=== PATIENT | female | born 1990 | race Caucasian/White ===

== ENCOUNTER 2016-03-05 16:22 | Emergency (ER) | payer BC ==
[2016-03-05 16:51] VITALS: BP 126/71
--- NOTE | 2016-03-05 17:09 | UC ---
Respiratory Complaint HPI - History of Current Complaint Chief Complaint: UCRespiratory Stated Complaint: CHEST CONGESTION Time Seen by Provider: 03/05/16 17:02 Hx Obtained From: Patient Hx Last Menstrual Period: mirena ?: No Onset/Duration: Sudden Onset, Lasting Days - 3, Worse Since - today Timing: Constant Character: Cough: Nonproductive Associated Signs And Symptoms: Positive: Wheezing, URI, Nasal Congestion, Hoarseness, Sinus Discomfort - bilateral maxillary - Risk Factors Pulmonary Embolism Risk Factors: Negative Cardiac Risk Factors: Negative Pseudomonas Risk Factors: Negative Tuberculosis Risk Factors: Negative - Allergies/Home Medications Allergies/Adverse Reactions: Allergies Allergy/AdvReac Type Severity Reaction Status Date / Time Hydrocodone [From Vicodin] Allergy Severe Swelling Verified 03/05/16 16:51 Of Face,Lips,& Throat Latex Allergy Rash Verified 03/05/16 16:51 wheat Allergy Hives Uncoded 03/05/16 16:51 Home Medications: Home Medications QUEtiapine TAB* [Seroquel TAB*] 75 mg PO BEDTIME 03/05/16 [History Confirmed 09/12] PMH/Surg Hx/FS Hx/Imm Hx Endocrine History Of: Denies: Diabetes, Thyroid Disease Cardiovascular History Of: Denies: Cardiac Disorders, Hypertension, Pacemaker/ICD, Congestive Heart Failure Respiratory History Of: Reports: Asthma - PT. STATES NO PROBLEMS NOW Denies: COPD GI/ History Of: Reports: Ulcer Denies: Gastroesophageal Reflux, Renal Disease Neurological History Of: Reports: Migraine - LAST ONE 05/2015 LASTED 2 DAYS Denies: CVA, Dementia, Seizures Psychological History Of: Reports: Anxiety, Depression Other History Of: Negative For: Anticoagulant Therapy - Surgical History Surgical History: Yes Surgery Procedure, Year, and Place: TUBES in bilat ears AT AGE 15. WISDOM TEETH. Gastric by pass 11/12/13 - Family History Known Family History: Positive: Hypertension - Social History Occupation: Employed Full-time Lives: With Family - with boyfriend Alcohol Use: Weekly Alcohol Amount: 4 BEERS X WEEK Substance Use Type: None Smoking Status (MU): Former Smoker Type: Cigarettes Amount Used/How Often: 2 CIG/DAY When Did the Patient Quit Smoking/Using Tobacco: 03/2015 - Immunization History Most Recent Influenza Vaccination: 2012 Most Recent Tetanus Shot: WITHIN 10 YRS Most Recent Pneumonia Vaccination: NONE Review of Systems Constitutional: Fever, Chills ENT: Nasal Discharge Respiratory: Shortness Of Breath, Cough Neurological: Headache - sinus All Other Systems Reviewed And Are Negative: Yes Physical Exam Triage Information Reviewed: Yes Appearance: No Pain Distress, Well-Nourished, Ill-Appearing Vital Signs: Initial Vital Signs Temp 96.6 F 03/05/16 16:44 Pulse 80 03/05/16 16:44 Resp 14 03/05/16 16:44 BP 126/71 03/05/16 16:44 Pulse Ox 100 03/05/16 16:44 Vital Signs Reviewed: Yes Eyes: Positive: Conjunctiva Clear ENT: Positive: Pharyngeal erythema, TMs normal Dental Exam: Normal Neck exam: Normal Respiratory: Positive: Wheezing - Expiratory wheeze with coughing. Cardiovascular Exam: Normal Musculoskeletal Exam: Normal Neurological Exam: Normal Psychological Exam: Normal Skin Exam: Normal UC Diagnostic Evaluation - Laboratory O2 Sat by Pulse Oximetry: 100 Respiratory Course/Dx - Differential Dx/Diagnosis Differential Diagnosis/HQI/PQRI: Asthma, Lower Resp Infection, Sinusitis Provider Diagnoses: Acute URI. Acute sinusitis. Acute bronchospasm Discharge - Discharge Plan Condition: Stable Disposition: HOME Prescriptions: Amoxicillin (*) 875 mg PO BID #20 tab predniSONE TAB* [Deltasone TAB*] 20 mg PO DAILY #18 tab Patient Education Materials: Upper Respiratory Infection (ED), Sinusitis (ED), Amoxicillin (By mouth), Bronchospasm (ED), Prednisone (By mouth), Albuterol (By breathing), How to Use a Metered-Dose Inhaler and a Spacer (ED) Additional Instructions: NASAL SPRAYS AND DROPS: Afrin in the PUMP/ MIST bottle. Tilt your head down and look at the floor while doing a strong sniff with the spray. Decongestant nasal sprays and drops often give dramatic relief from congestion. They are often recommended for patients with sinus infection to assist with sinus drainage. Persons with high blood pressure should consult the doctor before using these nasal sprays. Afrin and Sanjiv-Synephrine are common [id number] preparations. They should not be used for more than five days, as "rebound" congestion can occur - - the congestion flares as the drug wears off. A way of dealing with this rebound congestion problem is to medicate only one nostril each time, allowing the other nostril to recover from the medicine' s effects. When you no longer need the drug during the day, spray only one nostril each night. This helps you sleep well without severe rebound congestion. Call the doctor if you develop severe headache, palpitations, or chest pain.
[2016-03-05] MEDS ORDERED: Albuterol HFA INHALER* 8 gm MDI INH ONE (17:13)
[2016-03-05] MEDS ORDERED: predniSONE TAB* 20 MG PO ONE (17:13)
[2016-03-05] MEDS ORDERED: Amoxicillin PO (*) 500 MG CAP PO ONE (17:15)
== END 2016-03-05 17:45 | disposition home or self-care (01) ==
LOC: UCCORT 16:22
DX: J06.9 Acute upper respiratory infection, unspecified (principal); J01.90 Acute sinusitis, unspecified; J98.01 Acute bronchospasm; Z88.5 Allergy status to narcotic agent; Z87.891 Personal history of nicotine dependence
CPT/HCPCS: 99213; A9270-GY; G0463; J7512

== ENCOUNTER 2016-03-07 07:43 | Emergency (ER) | payer BC ==
[2016-03-07] MEDS ORDERED: Albuterol 2.5 MG/3 ML NEB.SOL* (0.083%) INH ONE (07:51)
[2016-03-07 08:09] VITALS: BP 128/54
[2016-03-07] MEDS ORDERED: predniSONE TAB* 20 MG PO ONE (08:30)
--- NOTE | 2016-03-07 08:34 | UC ---
Respiratory Complaint HPI - HPI Summary HPI Summary: worsening cough, and uri sx coughs so hard she feels light headed, subjective fevers with night sweats - History of Current Complaint Chief Complaint: UC Stated Complaint: CHEST CONGESTION Time Seen by Provider: 03/07/16 07:50 Hx Obtained From: Patient Hx Last Menstrual Period: 02/03/16, IUD tristen ?: No Onset/Duration: Gradual Onset, Lasting Days - 7, Still Present Timing: Constant Severity Initially: Mild Severity Currently: Moderate Pain Intensity: 7 Pain Scale Used: 0-10 Numeric Character: Cough: Productive Aggravating Factors: Allergens, Exertion, Deep Breaths, Recumbent Position Alleviating Factors: Bronchodilator Associated Signs And Symptoms: Positive: Chills, Pleuritic Chest Pain, Wheezing , URI, Nasal Congestion, Sinus Discomfort - Allergies/Home Medications Allergies/Adverse Reactions: Allergies Allergy/AdvReac Type Severity Reaction Status Date / Time Hydrocodone [From Vicodin] Allergy Severe Swelling Verified 03/05/16 16:51 Of Face,Lips,& Throat Latex Allergy Rash Verified 03/05/16 16:51 wheat Allergy Hives Uncoded 03/05/16 16:51 Home Medications: Home Medications Bupropion 50 mg PO DAILY 03/07/16 [History Confirmed 03/07/16] PMH/Surg Hx/FS Hx/Imm Hx Previously Healthy: No Endocrine History Of: Denies: Diabetes, Thyroid Disease Cardiovascular History Of: Denies: Cardiac Disorders, Hypertension, Pacemaker/ICD, Congestive Heart Failure Respiratory History Of: Reports: Asthma Denies: COPD GI/ History Of: Reports: Ulcer Denies: Gastroesophageal Reflux, Renal Disease Neurological History Of: Reports: Migraine - LAST ONE 05/2015 LASTED 2 DAYS Denies: CVA, Dementia, Seizures Psychological History Of: Reports: Anxiety, Depression Other History Of: Negative For: Anticoagulant Therapy - Surgical History Surgical History: Yes Surgery Procedure, Year, and Place: TUBES in bilat ears AT AGE 15. WISDOM TEETH. Gastric by pass 11/12/13. colycystectomy 08/12 - Family History Known Family History: Positive: Hypertension - Social History Occupation: Employed Full-time Lives: With Family Alcohol Use: None Alcohol Amount: 4 BEERS X WEEK Substance Use Type: None Smoking Status (MU): Former Smoker Type: Cigarettes Amount Used/How Often: 2 CIG/DAY Have You Smoked in the Last Year: Yes When Did the Patient Quit Smoking/Using Tobacco: 03/2015 Cessation Counseling: Patient Advised to Stop - Immunization History Most Recent Influenza Vaccination: 2015 Most Recent Tetanus Shot: WITHIN 10 YRS Most Recent Pneumonia Vaccination: NONE Review of Systems Constitutional: Chills, Fatigue Skin: Negative Eyes: Negative ENT: Sore Throat, Ear Ache, Nasal Discharge Respiratory: Cough Cardiovascular: Negative Gastrointestinal: Negative Genitourinary: Negative Motor: Negative Neurovascular: Negative Musculoskeletal: Negative Neurological: Negative Psychological: Negative All Other Systems Reviewed And Are Negative: Yes Physical Exam Triage Information Reviewed: Yes Appearance: Well-Nourished, Ill-Appearing, Pain Distress Vital Signs: Initial Vital Signs Temp 98.3 F 03/07/16 07:59 Pulse 78 03/07/16 07:59 Resp 22 03/07/16 07:59 BP 128/54 03/07/16 07:59 Pulse Ox 100 03/07/16 07:59 Vital Signs Reviewed: Yes Eye Exam: Normal Eyes: Positive: Conjunctiva Clear ENT Exam: Other ENT: Positive: Normal ENT inspection, Hearing grossly normal, Pharyngeal erythema, Nasal congestion, Nasal drainage, TMs normal. Negative: Tonsillar swelling, Tonsillar exudate, Trismus, Muffled/hoarse voice Dental Exam: Normal Neck exam: Normal Neck: Positive: Supple, Nontender, No Lymphadenopathy Respiratory Exam: Normal Respiratory: Positive: Chest non-tender, Lungs clear, Normal breath sounds, No respiratory distress, No accessory muscle use Cardiovascular Exam: Normal Cardiovascular: Positive: RRR, No Murmur, Pulses Normal, Brisk Capillary Refill Musculoskeletal Exam: Normal Musculoskeletal: Positive: Strength Intact, ROM Intact, No Edema Neurological Exam: Normal Neurological: Positive: Alert, Muscle Tone Normal Psychological Exam: Normal Psychological: Positive: Normal Response To Family Skin Exam: Normal UC Diagnostic Evaluation - Laboratory O2 Sat by Pulse Oximetry: 100 - Radiology Xray Interpretation: No Acute Changes Radiology Interpretation Completed By: ED Physician Re-Evaluation - Re-Evaluation First Eval Change: Improved - less cough increase airmovement, after neb Respiratory Course/Dx - Course Course Of Treatment: amoxicillin, prednisone, albuterol, flonase, increase fluids, re-check prn, REST - Differential Dx/Diagnosis Differential Diagnosis/HQI/PQRI: Bronchitis, Exacerbation Of COPD, Laryngitis, Lower Resp Infection Provider Diagnoses: Bronchititis with bronchospasm Discharge - Discharge Plan Condition: Stable Disposition: HOME Prescriptions: Albuterol HFA INHALER* [Ventolin HFA Inhaler*] 2 puff INH Q4H PRN #1 mdi PRN Reason: cough Amoxicillin (*) 875 mg PO BID #20 tab Fluticasone NASAL SPRAY 50MCG* [Flonase NASAL SPRAY 50MCG*] 2 spray BOTH NARES DAILY #1 btl predniSONE TAB* [Deltasone TAB*] 20 mg PO DAILY #18 tab Patient Education Materials: How to Use a Metered-Dose Inhaler (ED), Acute Bronchitis (ED), How to Use Nasal [place] (ED) Forms: *Work Release Referrals: Marcia Reyes HOME OFFICE REPRESENTATIVE [Primary Care Provider] - If Needed
--- NOTE | 2016-03-07 08:55 | RAD ---
INDICATION: Cough and fever COMPARISON: Chest x-ray dated March 23, 2015 TECHNIQUE: PA and lateral views of the chest were obtained. FINDINGS: The heart and mediastinum are normal in size and contour. The lungs are grossly clear. There is no evidence of large pleural effusion. Visualized bones are normal for the patient's age. There is no radiographic evidence of free air beneath the diaphragm IMPRESSION: No radiographic evidence of acute cardiopulmonary disease.
== END 2016-03-07 09:30 | disposition home or self-care (01) ==
LOC: UCEAST 07:43
DX: J20.9 Acute bronchitis, unspecified (principal); Z87.09 Personal history of other diseases of the respiratory system; Z86.59 Personal history of other mental and behavioral disorders; Z87.891 Personal history of nicotine dependence
CPT/HCPCS: 71020; 87651; 99212; G0463; J7512

== ENCOUNTER 2016-05-31 16:25 | Emergency (ER) | payer BC ==
[2016-05-31 17:23] VITALS: BP 123/83
--- NOTE | 2016-05-31 23:38 | UC ---
Dizzy HPI HPI Summary: PT AT WORK TODAY IN USUAL STATE OF HEALTH. WALKED TO [employer] MACHINE AND SUDDENLY FELT DIZZY AND HOT. HAD PALPITATIONS AND FELT HER HEART WAS RACING. NO CP OR SOB. FELT LIGHTHEADED AND UNFOCUSED. STATES SHE FEELS LIKE SHE IS "HAVING AN OUT OF BODY EXPERIENCE". HEART RATE NOTED TO BE HIGH 40S/LOW 50S WITH ECTOPIC BEATS. H/O GASTRIC BYPASS 10/2013. DENIES ANY CAFFEINE USE IN DAYS. NO ILLICIT DRUG USE. - History Of Current Complaint Chief Complaint: UC Stated Complaint: DIZZINESS Time Seen by Provider: 05/31/16 16:42 Hx Obtained From: Patient Hx Last Menstrual Period: 02/03/16, IUD tristen Onset/Duration: Sudden Onset, Lasting Minutes, Still Present Timing: Constant Severity Initially: Moderate Severity Currently: Moderate Pain Intensity: 0 Pain Scale Used: 0-10 Numeric Character: Lightheaded, Dizzy Aggravating Factor(s): Nothing Alleviating Factor(s): Nothing Associated Signs And Symptoms: Positive: Nausea, Palpitations. Negative: Diaphoresis, Tinnitus, Chest Pain, SOB, Visual Changes, Change In Diet - Allergies/Home Medications Allergies/Adverse Reactions: Allergies Allergy/AdvReac Type Severity Reaction Status Date / Time Hydrocodone [From Vicodin] Allergy Severe Swelling Verified 05/31/16 19:46 Of Face,Lips,& Throat Latex Allergy Rash Verified 05/31/16 19:46 wheat Allergy Hives Uncoded 05/31/16 19:46 PMH/Surg Hx/FS Hx/Imm Hx Endocrine History Of: Denies: Diabetes, Thyroid Disease Cardiovascular History Of: Denies: Cardiac Disorders, Hypertension, Pacemaker/ICD, Congestive Heart Failure Respiratory History Of: Reports: Asthma Denies: COPD GI/ History Of: Reports: Ulcer Denies: Gastroesophageal Reflux, Renal Disease Neurological History Of: Reports: Migraine - LAST ONE 05/2015 LASTED 2 DAYS Denies: CVA, Dementia, Seizures Psychological History Of: Reports: Anxiety, Depression Other History Of: Negative For: Anticoagulant Therapy - Surgical History Surgical History: Yes Surgery Procedure, Year, and Place: TUBES in bilat ears AT AGE 15. WISDOM TEETH. Gastric by pass 11/12/13. colycystectomy 08/12 - Family History Known Family History: Positive: Hypertension - Social History Alcohol Use: None Alcohol Amount: 4 BEERS X WEEK Substance Use Type: None Smoking Status (MU): Former Smoker Type: Cigarettes Amount Used/How Often: 2 CIG/DAY Have You Smoked in the Last Year: Yes When Did the Patient Quit Smoking/Using Tobacco: 03/2015 - Immunization History Most Recent Influenza Vaccination: 2016 Most Recent Tetanus Shot: WITHIN 10 YRS Most Recent Pneumonia Vaccination: NONE Review of Systems Constitutional: Other - DIZZY Respiratory: Negative Cardiovascular: Palpitations Gastrointestinal: Other - NAUSEA Genitourinary: Negative All Other Systems Reviewed And Are Negative: Yes Physical Exam Triage Information Reviewed: Yes Appearance: No Pain Distress, Well-Nourished, Ill-Appearing - PALE Vital Signs: Initial Vital Signs Pulse 83 05/31/16 16:40 Resp 20 05/31/16 16:40 BP 123/83 05/31/16 16:40 Pulse Ox 98 05/31/16 16:40 Vital Signs Reviewed: Yes Eyes: Positive: Conjunctiva Clear ENT: Positive: Hearing grossly normal Neck: Positive: Supple, Nontender, No Lymphadenopathy Respiratory Exam: Normal Cardiovascular: Positive: Other: - PATIENT INITIALLY BRADYCARDIC, THEN BECAME TACHYCARDIC WITH ECTOPIC BEATS Abdomen Description: Positive: Soft Musculoskeletal: Positive: No Edema Neurological: Positive: Other: - PT INITIALLY ALERT AND RESPONSIVE. DURING TRIAGE BECAME TACHYCARDIC AND UNRESPONSIVE FOR ABOUT 2 MINUTES THEN RECOVERED. Psychological: Positive: Age Appropriate Behavior Skin: Positive: Other - ERYTHEMATOUS SKIN ON ABDOMEN. Negative: rashes Dizzy Course/Dx - Course Course Of Treatment: PT BECAME UNRESPONSIVE FOR ABOUT 2 MINUTES DURING TRIAGE. OXYGEN APPLIED AND 2 PIVs ESTABLISHED. NS STARTED AND PT TRANSFERRED TO [facility] BY AMBULANCE. EKG REPEATED SEVERAL TIMES. SHOWED ECTOPIC BEATS AND RUNS OF BIGEMINY. HEART RATE VARIABLE FROM 60S TO 100S. 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
== END 2016-05-31 17:00 | disposition short-term general hospital (02) ==
LOC: UCEAST 16:25
DX: R42 Dizziness and giddiness (principal); I49.3 Ventricular premature depolarization; R00.1 Bradycardia, unspecified; R00.0 Tachycardia, unspecified; J45.909 Unspecified asthma, uncomplicated; G43.909 Migraine, unspecified, not intractable, without status migrainosus; F41.8 Other specified anxiety disorders; Z88.5 Allergy status to narcotic agent; Z87.891 Personal history of nicotine dependence
CPT/HCPCS: 93005; 99213; G0463

== ENCOUNTER 2016-05-31 17:25 | Observation (INO) | payer BC ==
[2016-05-31 17:50] LABS: Hematocrit 43 % (35-47); Hemoglobin 14.5 g/dl (12.0-16.0); Mean Corpuscular HGB Conc 34 g/dl (31-36); Mean Corpuscular Hemoglobin 30 pg (27-31); Mean Corpuscular Volume 88 fL (80-97); Mean Platelet Volume 9 um3 (7.4-10.4); Red Blood Count 4.93 10^6/ul (4.0-5.4); Red Cell Distribution Width 12 % (10.5-15)
[2016-05-31 18:05] LABS: ALT 19 U/L (7-52); AST 18 U/L (13-39); Alkaline Phosphatase 51 U/L (34-104); Anion Gap 9 mmol/L (2-11); BUN/Creatinine Ratio 15.7 (8-20); Blood Urea Nitrogen 13 mg/dL (6-24); CO2 Carbon Dioxide 20 mmol/L (22-32); Calcium 9.2 mg/dL (8.6-10.3); Chloride 106 mmol/L (101-111); EGFR African American 106.9 (>60); EGFR Non-African American 83.1 (>60); Globulin 2.9 g/dL (2-4); Glucose 93 mg/dL (70-100); Magnesium 1.9 mg/dL (1.9-2.7); Potassium 3.5 mmol/L (3.5-5.0); Sodium 135 mmol/L (133-145); Total Protein 6.9 g/dL (6.4-8.9)
[2016-05-31] MEDS ORDERED: NS 0.9% 1000 ML* 2,000 ML IV ONE (18:23)
[2016-05-31 18:24] LABS: Urine Bacteria 1+ (Absent); Urine Bilirubin Negative (Negative); Urine Glucose Negative (Negative); Urine Nitrite Negative (Negative)
[2016-05-31 19:02] LABS: Free T4 1.03 ng/dL (0.61-1.12)
[2016-05-31] MEDS ORDERED: cefTRIAXone(*) 1 GM in NS 0.9% 50 ML* 50 ML IVPB ONE (19:26)
[2016-05-31] MEDS ORDERED: traZODone TAB* 50 MG TAB PO PRN (19:34)
[2016-05-31] MEDS ORDERED: ALPRAZolam TAB* 0.25 MG PO PRN (19:35)
--- NOTE | 2016-05-31 19:38 | RAD ---
INDICATION: Bradycardia COMPARISON: Chest x-ray dated March 07, 2016 TECHNIQUE: Single AP portable view of the chest was obtained. FINDINGS: Image quality is compromised due to the relative inferiority of a portable chest x-ray. The heart and mediastinum exhibit normal size and contour. The lungs are grossly clear. There is no evidence of a large pleural effusion. Visualized bones are normal for the patient's age. IMPRESSION: No radiographic evidence for acute cardiopulmonary abnormality on this portable chest x-ray.
[2016-05-31] MEDS ORDERED: Potassium Chlor TAB* 20 MEQ TAB.ER PO ONE (19:43)
[2016-05-31] MEDS: NS 0.9% 1000 ML* 1,000 ML IV SCH (21:18)
[2016-05-31] MEDS ORDERED: Nitroglycerin TAB 0.4 MG* 0.4 MG TAB SL PRN (22:11)
[2016-05-31] MEDS: Ondansetron INJ* 2 MG/ML VIAL IV PRN (22:42)
[2016-05-31] MEDS: QUEtiapine TAB* 25 MG PO SCH (22:56)
[2016-05-31] MEDS: Docusate CAP* 100 MG PO SCH (22:57)
[2016-05-31] MEDS: Calcium Carbonate CHEW TAB* 500 MG (TUMS) PO SCH (22:57)
[2016-05-31] MEDS: Acetaminophen TAB* 325 MG PO PRN (23:52)
--- NOTE | 2016-06-01 01:01 | HP ---
HISTORY AND PHYSICAL: DATE OF ADMISSION: 05/31/16 PRIMARY CARE PROVIDER: Marcia Reyes NP. HEALTHCARE PROXY: Her [id number]. CODE STATUS: Full. SOURCE OF INFORMATION: History obtained from interview with the patient, review of past medical records. RELIABILITY: Good. CHIEF COMPLAINT: Syncope. HISTORY OF PRESENT ILLNESS: This is a 25-year-old female who has been in her usual state of health, thought she may have had a fever this morning, felt hot all over, but did not check her temperature. She went and worked out for about an hour and 15 minutes, which is usual for her. She does note that she worked late shift last night, went to bed at 10:30, probably did not fall asleep until midnight and woke up at 6:30 and had difficulty sleeping overnight. 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 She woke up and felt like she had difficulty talking and some confusion for 3 to 4 minutes but continued anxiety still present at the time of transfer to [facility]. She had no episodes of tongue biting, chest pain, shortness of breath, nausea, vomiting, loss of continence. She notes her diet has been good. She has been doing a better job meal prepping appropriately in the setting of her past gastric bypass, decreased alcohol consumption. She has had no symptoms including frequency, urinary hesitancy or dysuria but has not had these symptoms in the past with what she describes frequent urinary tract infections. Additionally, she notes prior to presentation on Monday 3 days prior, she did go tanning at a tanning salon for approximately 5 minutes, which is also not out of the ordinary, but does have diffuse erythema on her belly which she describes as burning. Additionally, she notes the addition of venlafaxine to her medication regimen approximately 2 weeks prior. PAST MEDICAL HISTORY: Anxiety, depression, asthma, migraines, bilateral ovarian cysts, Momo-en-Y gastric bypass in 2013, bilateral tympanostomy tubes, cholecystectomy in July 2015. MEDICATIONS: 1. Sertraline 150 mg daily. 2. The patient has an IUD. 3. Multivitamin. 4. Calcium 1500 mg daily. 5. Vitamin D 1000 units daily. 6. Vitamin B12, 500 units daily. 7. Topamax 25 daily. 8. Xanax daily as needed. 9. Trazodone 50 mg daily. 10. Seroquel 50 mg daily. 11. Ambien 5 mg at night. 12. Effexor 150 mg daily. ALLERGIES: To VICODIN, PERCOCET, and LATEX. FAMILY HISTORY: Father with hypertension. No history of CAD or CVA. SOCIAL HISTORY: Smokes 3 cigarettes per day for approximately 10 years, drinks approximately 2 alcoholic drinks per week. No illicits. 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 REVIEW OF SYSTEMS: As per HPI. Otherwise, all other systems negative. PHYSICAL EXAMINATION GENERAL: Sitting up in bed, interactive, pleasant, no apparent distress. VITAL SIGNS: In the emergency room, T-max 99.4, heart rate 80, 132/77, respiratory rate is 16. HEENT: Oropharynx is clear, has moist mucous membranes. Sclerae are anicteric. NECK: Nonelevated JVD. One small mobile 1 to 2 cm lymph node in the left anterior cervical chain. LUNGS: Clear to auscultation bilaterally. HEART: Regular rate and rhythm. No murmurs, rubs, or gallops. ABDOMEN: Soft, nontender, nondistended. EXTREMITIES: Warm and well perfused without clubbing, cyanosis, or edema. She has a diffuse nonblanching erythematous rash extending from her pubis to just below her breasts. Also diffusely erythematous on the back, although unclear if this is rash or it is from pressure sitting in the emergency room. NEUROLOGIC: She is alert and oriented x3. Cranial nerves II through XII are intact. DIAGNOSTIC STUDIES/LAB DATA: Labs reviewed, notable for lactic acid 3.0. White blood cell count 13,000, 69% neutrophils and urine positive for ketones, leuk esterase, white blood cells, red blood cells, squamous epithelial cells and bacteria. Data reviewed. EKG: Sinus with frequent PVCs, normal axis and intervals, normal R- wave progression. No ST or T-wave changes. Chest x-ray pending. ASSESSMENT AND PLAN: This is a 25-year-old female who presented to the hospital after episode of presyncope followed by syncopal episode per report at urgent care. Syncope in the setting of recent addition of venlafaxine, poor sleep overnight and vigorous workout, may suggest element of stress and/or dehydration and/or medication effect. Additionally, urine potentially positive for urinary tract infection, which may have pushed her body to go over the edge. In the setting of lactic acidosis, repeat lactic acid. She has received 2 L normal saline, gave another 2 L now. Repeat lactic acid now. Check chest x- ray for other indication of infection. Give 1 g of ceftriaxone empirically; given leukocytosis, repeat in the morning. Positive UA. Wait for urine culture. Treat with ceftriaxone as indicated above. Frequent premature atrial contractions. Repeat labs in the morning. Replace potassium now. No indication to treat with AV yoel blockade at this time. Rash on her abdomen, suspect in the setting of tanning. No evidence for Emil- Josue syndrome or at this time. We will continue following. Placed on telemetry given frequent premature atrial contractions and episode of syncope. Holding on echocardiogram. First troponin negative. DVT prophylaxis, low risk, ambulate ad brenda. CC: Marcia Reyes NP* [id number]/[facility] #: [id number] [facility] HOSPITALNette
[2016-06-01 03:37] LABS: Hematocrit 36 % (35-47); Hemoglobin 12.3 g/dl (12.0-16.0); Mean Corpuscular HGB Conc 34 g/dl (31-36); Mean Corpuscular Hemoglobin 30 pg (27-31); Mean Corpuscular Volume 89 fL (80-97); Mean Platelet Volume 9 um3 (7.4-10.4); Red Blood Count 4.08 10^6/ul (4.0-5.4); Red Cell Distribution Width 13 % (10.5-15); White Blood Count 7.6 10^3/ul (3.5-10.8)
[2016-06-01] MEDS: Ondansetron INJ* 2 MG/ML VIAL IV PRN ×2 (03:54→08:05)
[2016-06-01 03:57] LABS: Anion Gap 3 mmol/L (2-11); BUN/Creatinine Ratio 14.5 (8-20); Blood Urea Nitrogen 10 mg/dL (6-24); CO2 Carbon Dioxide 23 mmol/L (22-32); Calcium 8.2 mg/dL (8.6-10.3); Chloride 111 mmol/L (101-111); EGFR African American 132.3 (>60); EGFR Non-African American 102.8 (>60); Glucose 89 mg/dL (70-100); Potassium 3.9 mmol/L (3.5-5.0); Sodium 137 mmol/L (133-145)
[2016-06-01] MEDS: NS 0.9% 1000 ML* 1,000 ML IV SCH ×3 (05:46→18:37)
[2016-06-01] MEDS: Docusate CAP* 100 MG PO SCH ×2 (07:54→21:25)
[2016-06-01] MEDS: Cyanocobalamin TAB* 500 MCG PO SCH (08:05)
[2016-06-01] MEDS: Topiramate TAB(*) 25 MG PO SCH (08:05)
[2016-06-01] MEDS: Venlafaxine EXT RELEASE CAP* 75 MG PO SCH (08:05)
[2016-06-01] MEDS: Multivitamins/Minerals TAB PO SCH (08:05)
[2016-06-01] MEDS: Cholecalciferol TAB* 1000 UNITS PO SCH (08:05)
[2016-06-01] MEDS: Sertraline* 50 MG TAB PO SCH (08:05)
[2016-06-01] MEDS: Calcium Carbonate CHEW TAB* 500 MG (TUMS) PO SCH ×2 (08:05→21:25)
[2016-06-01] MEDS ORDERED: Ondansetron INJ* 2 MG/ML VIAL IV ONE (09:53)
[2016-06-01] MEDS ORDERED: LORazepam INJ* 2 MG/ML 1 ML VIAL IV PUSH PRN (11:14)
--- NOTE | 2016-06-01 11:28 | PN ---
Subjective Date of Service: 06/01/16 Interval History: Events from overnight reviewed Tele - episodes of bigemeny and continued PVCs Episode of chest pain. Received SL nitro x 1 with decrease in BP This AM has vertigo described as constant spinning not related to movement. Also with CERVANTES different from usual migraines and vomiting although was able to eat some breakfast. Objective Active Medications: Acetaminophen (Tylenol Tab*) 650 mg PO Q4H PRN PRN Reason: FEVER/PAIN Last Admin: 05/31/16 23:52 Dose: 650 mg Calcium Carbonate (Tums*) 1,500 mg PO BID [facility] Last Admin: 06/01/16 08:05 Dose: 1,500 mg Cholecalciferol (Vitamin D Tab*) 1,000 units PO DAILY [facility] Last Admin: 06/01/16 08:05 Dose: 1,000 units Cyanocobalamin (Vitamin B12 Tab*) 1,000 mcg PO DAILY [facility] Last Admin: 06/01/16 08:05 Dose: 1,000 mcg Docusate Sodium (Colace Cap*) 100 mg PO BID [facility] Last Admin: 06/01/16 07:54 Dose: Not Given Ceftriaxone Sodium 1,000 mg/ (Sodium Chloride) 50 mls @ 200 mls/hr IVPB Q24H [facility] Sodium Chloride (Ns 0.9% 1000 Ml*) 1,000 mls @ 250 mls/hr IV PER RATE [facility] Stop: 06/02/16 15:29 Lorazepam (Ativan Inj*) 0.5 mg IV PUSH Q4H PRN PRN Reason: NAUSEA Meclizine HCl (Antivert Tab*) 25 mg PO Q8HR PRN PRN Reason: VERTIGO Multivitamins/Minerals (Theragran/Minerals Tab*) 1 tab PO DAILY [facility] Last Admin: 06/01/16 08:05 Dose: 1 tab Ondansetron HCl (Zofran Inj*) 4 mg IV Q4H PRN PRN Reason: NAUSEA/VOMITING Last Admin: 06/01/16 08:05 Dose: 4 mg Quetiapine Fumarate (Seroquel Tab*) 50 mg PO BEDTIME [facility] Last Admin: 05/31/16 22:56 Dose: 50 mg Sertraline HCl (Zoloft*) 150 mg PO DAILY [facility] Last Admin: 06/01/16 08:05 Dose: 150 mg Topiramate (Topamax(*)) 25 mg PO DAILY [facility] Last Admin: 06/01/16 08:05 Dose: 25 mg Trazodone HCl (Desyrel Tab*) 50 mg PO BEDTIME PRN PRN Reason: INSOMNIA Venlafaxine HCl (Effexor Xr Cap*) 150 mg PO DAILY [facility] Last Admin: 06/01/16 08:05 Dose: 150 mg Vital Signs 05/31/16 05/31/16 05/31/16 19:30 19:54 20:00 Temperature Pulse Rate 77 Respiratory 18 22 Rate Blood Pressure 123/58 115/45 (mmHg) O2 Sat by Pulse 99 Oximetry 05/31/16 05/31/16 05/31/16 20:01 21:14 23:57 Temperature 98.0 F 98.9 F Pulse Rate 73 40 Respiratory 15 18 20 Rate Blood Pressure 109/63 91/62 (mmHg) O2 Sat by Pulse 100 98 Oximetry 06/01/16 06/01/16 06/01/16 00:00 03:47 07:19 Temperature 98.2 F 98.2 F Pulse Rate 70 86 65 Respiratory 20 16 Rate Blood Pressure 129/65 103/55 (mmHg) O2 Sat by Pulse 99 99 Oximetry 06/01/16 10:37 Temperature Pulse Rate Respiratory 18 Rate Blood Pressure (mmHg) O2 Sat by Pulse Oximetry Oxygen Devices in Use Now: None Appearance: NAD Eyes: No Scleral Icterus, PERRLA Ears/Nose/Mouth/Throat: Clear Oropharnyx, Mucous Membranes Moist Neck: NL Appearance and Movements; NL JVP, Trachea Midline Respiratory: Symmetrical Chest Expansion and Respiratory Effort, Clear to Auscultation Cardiovascular: NL Sounds; No Murmurs; No JVD, RRR Abdominal: NL Sounds; No Tenderness; No Distention, No Hepatosplenomegaly Lymphatic: No Cervical Adenopathy Extremities: No Edema, No Clubbing, Cyanosis Skin: - - mild erythema on abdomen Neurological: Alert and Oriented x 3, - - no nystagmus Result Diagrams: 06/01/16 03:25 06/01/16 03:26 Additional Lab and Data: Lab Results 05/31/16 Range/Units 17:40 WBC 13.0 H (3.5-10.8) 10^3/ul RBC 4.93 (4.0-5.4) 10^6/ul Hgb 14.5 (12.0-16.0) g/dl Hct 43 (35-47) % MCV 88 (80-97) fL MCH 30 (27-31) pg MCHC 34 (31-36) g/dl RDW 12 (10.5-15) % Plt Count 231 (150-450) 10^3/ul MPV 9 (7.4-10.4) um3 Neut % (Auto) 69.1 (38-83) % Lymph % (Auto) 23.4 L (25-47) % [place] % (Auto) 6.6 (1-9) % Eos % (Auto) 0.7 (0-6) % Baso % (Auto) 0.2 (0-2) % Absolute Neuts (auto) 9.0 H (1.5-7.7) 10^3/ul Absolute Lymphs (auto) 3.0 (1.0-4.8) 10^3/ul Absolute Monos (auto) 0.9 H (0-0.8) 10^3/ul Absolute Eos (auto) 0.1 (0-0.6) 10^3/ul Absolute Basos (auto) 0 (0-0.2) 10^3/ul Absolute Nucleated RBC 0 10^3/ul Nucleated RBC % 0 Assess/Plan/Problems-Billing Assessment: 25 yo F h/o gastric bypass, depression/anxiety, b/l tympanostomy tubes, migraines p/w episode of LH and syncope (per report) - Patient Problems (1) Syncope Comment: Suspect volume depletion with vigorous exercise, low PO intake, and possible UTI c/w CTX until urine culture complete continue normal saline, 2 additional liters NS now Had episode of decreased BP in response to nitro SL. Will check TTE. Normal troponins. EKG with frequent extopy (2) PVC (premature ventricular contraction) Comment: present on past EKGs may benefit from outpatient holter to quantify burden (3) Vertigo Comment: No recent URI symptoms but sudden onset nausea and vertigo c/w neuronitis Trial meclizine, zofran, ativan PRN can consider steroids low risk for CVA, will not pursue MRI brain at this time (4) Depression Comment: On multiple medications QTc is OK Recent addition of venlafaxine could be contributing to above No change at this time (5) DVT prophylaxis Comment: low risk
[2016-06-01] MEDS: Meclizine TAB* 12.5 MG PO PRN ×2 (11:46→21:26)
[2016-06-01] MEDS: Acetaminophen TAB* 325 MG PO PRN ×2 (14:11→18:39)
--- NOTE | 2016-06-01 14:53 | ECHO ---
Patient: NADIR AGOSTO [facility] Rec#: [id number] : 1990 Date: 06/01/2016 Age: 25y Height: 177.8 cm / 70.0 in Weight: 91.63 kg / 202.0 lbs Sex: F BSA: 2.1 Room#: 445 Admit Date#: 05/31/2016 Type: Inpatient Referring: Diogenes Sheridan MD Reading: Shaneka Feng MD Bio Medical Technician: Noemí Scott,RDCS,RDMS CC: Marcia Reyes, FILEMAKER DEVELOPER Transthoracic Echocardiogram Indication: Hypotension BP: 103/55 HR: 78 Rhythm: NSR with PVCs Indications Hypotension Findings History: Migraines, smoker, Momo-en-Y gastric bypass. Technical Comments: The study quality is good. Left Ventricle: The left ventricular chamber size is normal. There is no left ventricular hypertrophy. Global left ventricular wall motion and contractility are within normal limits. The estimated ejection fraction is 55-60%. Normal left ventricular diastolic filling is observed. Left Atrium: The left atrial chamber size is normal. Right Ventricle: The right ventricular cavity size is normal. The right ventricular global systolic function is normal. Right Atrium: The right atrium is mildly dilated. Aortic Valve: The aortic valve is trileaflet. There is no evidence of aortic valve thickening. There is no evidence of aortic regurgitation. There is no evidence of aortic stenosis. Mitral Valve: The mitral valve leaflets appear normal. There is trace to mild mitral regurgitation. There is no evidence of mitral stenosis. Tricuspid Valve: The tricuspid valve leaflets are normal. There is mild to moderate tricuspid regurgitation. There is evidence of mild pulmonary hypertension. Pulmonic Valve: The pulmonic valve appears normal. There is a trace pulmonic regurgitation. Pericardium: There is no significant pericardial effusion. Aorta: The aortic root appears normal. There is no dilatation of the aortic arch. Pulmonary Artery: The main pulmonary artery is not well visualized. Venous: The inferior vena cava is dilated. There is a greater than 50% respiratory change in the inferior vena cava dimension. Conclusions The left ventricular chamber size is normal. Global left ventricular wall motion and contractility are within normal limits. The estimated ejection fraction is 55-60%. The right ventricular global systolic function is normal. The right atrium is mildly dilated. There is trace to mild mitral regurgitation. There is mild to moderate tricuspid regurgitation. There is evidence of mild pulmonary hypertension: 37 mmHg. The inferior vena cava is dilated. No prior echo to compare. Measurements Name Value Normal Range RVIDd (AP) 2D 2.6 cm (0.9 - 2.6) RAd ISD 4CH 5.8 cm (3.4 - 4.9) RA (A4C)W 3.7 cm (2.9 - 4.6) IVSd (2D) 0.9 cm (0.6 - 1) LVPWd (2D) 0.9 cm (0.6 - 1) LVIDd (2D) 5.1 cm (3.6 - 5.4) LVIDs (2D) 3.9 cm - LV FS (2D) 24 % (25 - 45) Aortic Annulus 2 cm (1.4 - 2.6) Ao root diameter (2D) 2.5 cm (2.1 - 3.5) Ascending Ao 3 cm (2.1 - 3.4) Aortic arch 2.3 cm (1.8 - 3.4) LA dimension (AP) 2D 3.5 cm (2.3 - 3.8) LAd ISD 4CH 5.4 cm (2.9 - 5.3) LA ISD 4CH W 3.9 cm (2.5 - 4.5) Name Value Normal Range LA ESV SP 4CH (A/L) 46.37 ml - LA ESV SP 2CH (A/L) 39 ml - LA ESV BP (A/L) 43.16 ml - LA ESV BP (A/L) index 21 ml/m2 - LA ESV SP 4CH (MOD) 42.31 ml - LA ESV SP 2CH (MOD) 37.67 ml - Name Value Normal Range MV E-wave Vmax 1 m/sec - MV deceleration time 229 msec - MV A-wave Vmax 0.6 m/sec - MV E:A ratio 1.6 ratio - P. vein S-wave Vmax 0.6 m/sec - P. vein D-wave Vmax 0.4 m/sec - P. vein S:D Vmax ratio 1.3 ratio - P. vein A-wave duration 97 msec - LV septal e' Vmax 0.13 m/sec - LV lateral e' Vmax 0.15 m/sec - LV E:e' septal ratio 7.7 ratio - LV E:e' lateral ratio 7 ratio - Name Value Normal Range AV Vmax 1.4 m/sec - AV VTI 35 cm - AV peak gradient 8 mmHg - AV mean gradient 5 mmHg - LVOT Vmax 1.2 m/sec - LVOT VTI 25 cm - LVOT peak gradient 6 mmHg - LVOT mean gradient 3.2 mmHg - BASHIR Vmax 1.2 m/sec - Name Value Normal Range TR Vmax 2.7 m/sec - TR peak gradient 29 mmHg - RAP 8 mmHg - RVSP 37 mmHg - IVC diameter 3.1 cm - Name Value Normal Range PV Vmax 0.9 m/sec - PV peak gradient 3.2 mmHg -
[2016-06-01] MEDS ORDERED: Iohexol 350* (CONTRAST) 500 ML MDV IV ONE (16:46)
[2016-06-01 17:48] LABS: C Reactive Protein < 1.00 mg/L (< 5.00)
[2016-06-01] MEDS ORDERED: cefTRIAXone VIAL(*) 1,000 MG in NS 0.9% 50 ML* 50 ML IVPB SCH (18:00)
[2016-06-01 18:40] LABS: Erythrocyte Sed Rate 8 mm/Hr (0-14)
--- NOTE | 2016-06-01 19:23 | RAD ---
INDICATION: Syncope COMPARISON: CTA chest dated November 16, 2013 TECHNIQUE: Axial source images were acquired following the administration of 78 mL Omnipaque [address] angiographic technique. Coronal and sagittal reconstructed images were constructed and reviewed. FINDINGS: There there are no filling defects in the pulmonary arteries to indicate acute pulmonary embolic disease. There are no focal infiltrates or effusions. There are no pulmonary parenchymal masses. The heart is normal in size. There is no evidence of pericardial effusion. There is no evidence of aortic aneurysm or dissection. There is no mediastinal, hilar, or axillary lymphadenopathy. There is coarse calcification in the right lobe of the thyroid that corresponds to similar calcification seen on the previous CT examination. There is multilevel loss of intervertebral disc height at the lower thoracic spine. Surgical material related to the gastric bypass surgery is noted. More thorough evaluation of the proximal gastrointestinal tract is limited without oral contrast. Surgical clips are noted in the gallbladder fossa consistent with a history of cholecystectomy. IMPRESSION: 1. No CT of evidence of pulmonary embolism. 2. Chronic and postoperative findings as described in body the report.
[2016-06-01] MEDS: QUEtiapine TAB* 25 MG PO SCH (21:26)
--- NOTE | 2016-06-01 22:31 | ED ---
Betito Gee Adam, scribed for Ted Pinzon MD on 05/31/16 at 1813 . Syncope/Near Syncope - HPI Summary HPI Summary: Pt is a 25 year old female sent from [facility] after having a syncopal episode. The pt states that she felt "weird" at work and while she was walking she developed dizziness and feelings of pre-syncope. At [facility] her HR was found to be in the 40' s. She remembers them starting to take her EKG and then the next thing she remembers is being in the ambulance. Although her HR has been slow she states that it feels like it is racing. She became nauseous at [facility] and vomited. She also presents with redness all over her torso. She states that she went tanning 3 days ago but did not have any redness before today. She had a CERVANTES yesterday ( she gets them often). She is not prone to syncopal episodes. She denies burning during urination, vaginal discharge, blood in stool, and pain with eating. She had oatmeal at 08:00, protein bar at 12:00, and granola at 14:30 today. Pt takes Topamax for migraines, Effexor, Zoloft, sleep medications, and vitamins. She drinks alcohol but denies any hx of drug use. PMHx of Ellen. Gastric bypass in 2013 with no complications. - History Of Current Complaint Chief Complaint: EDSyncope Time Seen by Provider: 05/31/16 17:40 Hx Obtained From: Patient Onset/Duration: Gradual Onset, Lasting Minutes, Resolved - Pt is alert and oriented but does not feel well Timing: Intermittent Episode Lasting - Minutes Context: Witnessed Activity At Onset: At Rest Associated Head Trauma: No Aggravating Factor(s): Nothing Alleviating Factor(s): Nothing Associated Signs And Symptoms: Dizzy, Headache - Yesterday, Palpitations, Vomiting - Allergies/Home Medications Allergies/Adverse Reactions: Allergies Allergy/AdvReac Type Severity Reaction Status Date / Time Hydrocodone [From Vicodin] Allergy Severe Swelling Verified 03/05/16 16:51 Of Face,Lips,& Throat Latex Allergy Rash Verified 03/05/16 16:51 wheat Allergy Hives Uncoded 03/05/16 16:51 PMH/Surg Hx/FS Hx/Imm Hx Endocrine/Hematology History: Denies: Hx Anticoagulant Therapy, Hx Diabetes, Hx Thyroid Disease Cardiovascular History: Denies: Hx Congestive Heart Failure, Hx Hypertension, Hx Pacemaker/ICD Respiratory History: Reports: Hx Asthma Denies: Hx Chronic Obstructive Pulmonary Disease (COPD) GI History: Reports: Hx Ulcer, Other GI Disorders - GERD. S/P Gastric Bypass. Current RUQ pain. GALLBLADDER PAIN Denies: Hx Gastroesophageal Reflux Disease History: Reports: Hx Kidney Infection, Other Problems/Disorders - UTI 3 WEEKS AGO,TX AND PT STATES BETTER NOW, MULTIPLE CYSCT ON OVARIES OB' Denies: Hx Renal Disease Sensory History: Reports: Hx Contacts or Glasses - CONTACTS Denies: Hx Hearing Aid Opthamlomology History: Reports: Hx Contacts or Glasses - CONTACTS Neurological History: Reports: Hx Headaches, Hx Migraine - LAST ONE 05/2015 LASTED 2 DAYS Denies: Hx Dementia, Hx Seizures Psychiatric History: Reports: Hx Anxiety, Hx Depression Denies: Hx Substance Abuse - Surgical History Surgery Procedure, Year, and Place: TUBES in bilat ears AT AGE 15. WISDOM TEETH. Gastric by pass 11/12/13. colycystectomy 08/12 Hx Anesthesia Reactions: No Infectious Disease History: No Infectious Disease History: Denies: Hx Clostridium Difficile, Hx Hepatitis, Hx Human Immunodeficiency Virus (HIV), Hx of Known/Suspected MRSA, Hx Shingles, Hx Tuberculosis, Hx Known/ Suspected VRE, Hx Known/Suspected VRSA, History Other Infectious Disease, Traveled Outside the [place] in Last 30 Days - Family History Known Family History: Positive: Hypertension - Social History Occupation: Employed Full-time Lives: Alone Alcohol Use: Weekly Alcohol Amount: 4 BEERS X WEEK Hx Substance Use: No Substance Use Type: Reports: None Hx Tobacco Use: Yes Smoking Status (MU): Former Smoker Type: Cigarettes Amount Used/How Often: 2 CIG/DAY Have You Smoked in the Last Year: Yes Review of Systems Negative: Fever, Chills Negative: Erythema Negative: Sore Throat Positive: Palpitations. Negative: Chest Pain Negative: Shortness Of Breath, Cough Positive: Vomiting, Nausea. Negative: Abdominal Pain Negative: burning, dysuria, discharge, hematuria Negative: Myalgia, Edema Positive: Rash - Redness all over torso. Neurological: Other - Dizziness Positive: Syncope All Other Systems Reviewed And Are Negative: Yes Physical Exam - Summary Physical Exam Summary: Constitutional: Well-developed, Well-nourished, Alert. (-) Distressed Skin: Erythema from the waist up to the neck and throughout the entire back. HENT: Normocephalic; Atraumatic Eyes: Conjunctiva normal Neck: Musculoskeletal ROM normal neck. (-) JVD, (-) Stridor, (-) Tracheal deviation Cardio: Rhythm regular, rate normal, Heart sounds normal; Intact distal pulses; The pedal pulses are 2+ and symmetric. Radial pulses are 2+ and symmetric. (-) Murmur Pulmonary/Chest wall: Effort normal. (-) Respiratory distress, (-) Wheezes, (-) Rales Abd: Soft, (-) Tenderness, (-) Distension, (-) Guarding, (-) Rebound Musculoskeletal: (-) Edema Lymph: (-) Cervical adenopathy Neuro: Alert, Oriented x3 Psych: Mood and affect Normal Triage Information Reviewed: Yes Vital Signs On Initial Exam: Initial Vitals Temp Pulse Resp BP Pulse Ox 99.4 F 74 22 132/58 100 05/31/16 17:45 05/31/16 17:45 05/31/16 17:45 05/31/16 17:45 05/31/16 17:45 Vital Signs Reviewed: Yes - Shereen Coma Scale Coma Scale Total: 15 Diagnostics - Vital Signs Vital Signs Temp Pulse Resp BP Pulse Ox 05/31/16 17:45 99.4 F 74 22 132/58 100 - Laboratory Lab Results: Lab Results 05/31/16 Range/Units 17:40 WBC 13.0 H (3.5-10.8) 10^3/ul RBC 4.93 (4.0-5.4) 10^6/ul Hgb 14.5 (12.0-16.0) g/dl Hct 43 (35-47) % MCV 88 (80-97) fL MCH 30 (27-31) pg MCHC 34 (31-36) g/dl RDW 12 (10.5-15) % Plt Count 231 (150-450) 10^3/ul MPV 9 (7.4-10.4) um3 Neut % (Auto) 69.1 (38-83) % Lymph % (Auto) 23.4 L (25-47) % Rich % (Auto) 6.6 (1-9) % Eos % (Auto) 0.7 (0-6) % Baso % (Auto) 0.2 (0-2) % Absolute Neuts (auto) 9.0 H (1.5-7.7) 10^3/ul Absolute Lymphs (auto) 3.0 (1.0-4.8) 10^3/ul Absolute Monos (auto) 0.9 H (0-0.8) 10^3/ul Absolute Eos (auto) 0.1 (0-0.6) 10^3/ul Absolute Basos (auto) 0 (0-0.2) 10^3/ul Absolute Nucleated RBC 0 10^3/ul Nucleated RBC % 0 Result Diagrams: 05/31/16 17:40 05/31/16 17:40 Lab Statement: Any lab studies that have been ordered have been reviewed, and results considered in the medical decision making process. - Radiology CXR Radiology Interpretation Completed By: Radiologist - IMPRESSION: No radiographic evidence for acute cardiopulmonary abnormality on this portable chest x-ray. - EKG 17:44 Cardiac Rate: NL - 69 BPM EKG Rhythm: Sinus Rhythm - Normal Ectopy: PVCs - Occasional EKG Interpretation: No STEMI 18:37 Cardiac Rate: Bradycardia - 59 BPM EKG Interpretation: Trigeminy. No STEMI - Additional Comments Diagnostic Additional Comments: Lactic Acid - 3.0 Troponin I - 0.00 Course/Dx - Diagnoses Provider Diagnoses: Syncope, UTI (urinary tract infection), Frequent PVCs, Symptomatic bradycardia - Physician Notifications Discussed Care Of Patient With: Dr. Sheridan at 18:34. He asked for a repeat EKG to be done. Discharge - Discharge Plan Condition: Stable Disposition: ADMITTED TO [facility] Referrals: Marcia Reyes, SIPHONER [Primary Care Provider] - The documentation as recorded by the Betito herrera Adam accurately reflects the service I personally performed and the decisions made by me, Ted Pinzon MD.
--- NOTE | 2016-06-02 05:44 | CONS ---
CONSULTATION REPORT: DATE OF CONSULT: 06/01/16 REASON FOR CONSULTATION: PVCs and dizziness. CHIEF COMPLAINT: The patient's chief complaint is dizziness and heart pounding. HISTORY OF PRESENT ILLNESS: The patient is a 25-year-old woman who is in her usual state of health until yesterday. She works at [employer] and was standing, walked forward to go to the fax machine, and suddenly became dizzy and had to hold on to the machine. She said she had felt off that day, she got up, felt a little bit off, did her usual workout, had a meal of oatmeal, a protein bar, some water bottles, did not work out as much as usual because she had had an aggressive workup the day before. She did not tell me this, but the admission note documented that she felt hot all over. At work at the [employer], they checked an EKG and we are going to check another one, and she lost consciousness while lying down getting the EKG. There were reports that she had difficulty talking and confusion for a few minutes following the episode of loss of consciousness. The patient states that prior to the event, she felt like her heart was beating hard and after the event, she had nausea. After transfer to the emergency room here, she had substernal chest discomfort radiated to the left arm, curling up in the position helped this and she denies any pleuritic component. For this pain, she was given sublingual nitroglycerin in the emergency room and dropped her pressure significantly. Since then, she has had headaches and tells me she has a history of migraine headaches. Additional history revealed a history of vertigo with a sense that the room is spinning. It is not worsened by moving her head forward or backward or to the side or sitting up and down in bed. She states it is just there. PAST MEDICAL HISTORY: 1. Obesity, status post Momo-en-Y gastric bypass surgery in 2013. 2. Migraine headaches. 3. Posttraumatic stress syndrome/anxiety/depression. 4. Urinary tract infections. PAST SURGICAL HISTORY: Includes a Momo-en-Y bypass, tympanoplasty with tubes, cholecystectomy in July 2015. OUTPATIENT MEDICATIONS: Include: 1. Sertraline. 2. Multivites. 3. Calcium. 4. Vitamin D. 5. B12. 6. Topamax 25 mg a day. 7. Xanax p.r.n. 8. Trazodone 50 mg a day. 9. Seroquel 50 mg a day. 10. Ambien 5 mg at night. 11. Effexor 150 mg a day. ALLERGIES: Include VICODIN, PERCOCET and LATEX. FAMILY HISTORY: Significant that her father has obstructive sleep apnea and hypertension. Her mother has a history of thyroid cancer. She has a grandfather that had a myocardial infarction. 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 REVIEW OF SYSTEMS: Revealed that a couple of weeks ago, her legs were more swollen than usual, so she cut her salt way down. She denies any changes in medication. She admits that she smokes. She has trouble sleeping and uses Ambien to help sleep. She attributes the sleep problems to a posttraumatic stress disorder and estimates she only sleeps 4 to 5 hours a night. When I discussed with her that she appeared to be dehydrated, she said this is common from her gastric bypass surgery, but states that she eats regularly. Notes from the hospitalist admission indicate that her diet is not always optimal and she discusses a recent decrease in alcohol consumption. The patient denies any other episodes in her life of loss of consciousness. No history of past vagally mediated episodes. She said she is prone to urinary tract infections, is sexually active, does not think she could be as she has an IUD and has not had intercourse in over a month. No recent fevers, chills, or sweats. No recent coughing, sinus problems, ear infections, hematuria, dysuria. No recent diarrhea or constipation. She states her diet has been stable. No orthopnea or PND. She works out at the gym regularly. Does lift weights, lifted only 5-pound weights the morning of the event. See history of present illness, but no other pertinent positives or negatives. PHYSICAL EXAM: Vital Signs: On exam, the patient is 5 foot 9 inches, weighs 202 pounds with a BMI of 30, blood pressure on admission 132/58 with a pulse of 74, temperature 99.4, oxygen saturation of 100% on room air. Currently, the temperature 98, pulse is 60 and regular, respiratory rate 16, oxygen saturation 98% with a blood pressure of 134/80. General Appearance: Young woman, mild to moderately overweight, in a darkened room due to migraines. Psychologically: Pleasant and cooperative. Neurologically: Awake, alert and oriented to person , place and time. Cranial nerves II through XII intact, grossly normal sensory and motor function in the upper and lower extremities. Gait not checked. Skin : Warm and dry. No appreciable cyanosis or rashes. HEENT: Pupils are equal and round. Mucous membranes are moist. Tongue midline. Neck: Without appreciable increased JVP. Good carotid pulses, no audible bruits. Lungs: Clear with good effort. No wheezes, rales or rhonchi. Coronary: S1 and S2, regular without murmurs or rubs. Chest wall, her pain can be reproduced with palpation over the costochondral junction. Abdomen: No epigastric discomfort, active bowel sounds, soft, nontender. No hepatosplenomegaly or masses appreciated and the lower extremities were free of edema. LABS ON ADMISSION: White count 13, hemoglobin 14.5, platelets 231. Today, white count 7.6, hemoglobin 12.3, platelets 162 and sed rate of 8. D-dimer less than 200. Electrolytes on admission, sodium 135, potassium 3.5, chloride 106, bicarb 20, BUN 13, creatinine 0.83, glucose 93, ALT of 19, AST 18, TSH 1.1 , free T4 of 1.03, lactic acid on admission 3. Troponin 0.00, 0.00, and 0.00. C-reactive protein less than 1. Electrolytes today, sodium 137, potassium 3.9, glucose 89, bicarb 23, BUN 10, creatinine 0.69. Urinalysis on admission was positive for ketones, esterase 3+ positive, nitrite negative, white cells 1+, bacteria 1+. Microbiology with urine culture, no growth. DIAGNOSTIC STUDIES: ECG on 05/31/16 at 16:39 shows normal sinus rhythm at 75 beats a minute with 2 PVCs in a 10-second strip, nonspecific ST changes noted. ECG from 05/31/16 at 10:11 at night shows normal sinus rhythm, 75 beats a minute with 4 PVCs. Multiple ECGs were reviewed. There appeared to be left PVCs when her resting heart rate is faster. I do not have access to the ECGs done at [facility] , either hard copies or on the computer. She has an EKG from 03/08/12 that shows sinus tachycardia, 100 beats a minute with transient ventricular bigeminy. Echocardiogram done today shows normal left ventricular chamber dimensions with an ejection fraction of 55% to 60%, and normal diastolic filling. She had normal right ventricular function. She had fohvl-ac-[id number] mitral insufficiency, mild-to- moderate tricuspid insufficiency, and mildly elevated PA pressures at 37 mmHg. Her inferior vena cava was dilated and she had only physiologic pericardial effusion. IMPRESSION: In summary, Pinky Cahs is a 25-year-old woman who was busy at work yesterday, had a witnessed episode with loss of consciousness. [facility] records showed initial blood pressure of 66/44 with a pulse of 80; 10 minutes later, blood pressure was 152/99 with a pulse of 81; and 30 minutes later, blood pressure 125/80 with a pulse of 18. It appears the patient's lab work is suggestive of relative dehydration with low bicarb, elevated lactic acid. This could have been a vagal event, possibly triggered from the anxiety of her original dizziness. It is possible that she has vertigo, either labyrinthitis or an episode of benign positional vertigo; it may be worth attempting an Robb maneuver on her. 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 Options going forward, I will plan on doing a plain treadmill stress test on her , primarily to look at her blood pressure and heart rate response to exercise to see if there is evidence of significant autonomic dysfunction, perhaps POTS. I have asked her to re-liberalize her salt intake. She may need a little extra preload with her tricuspid insufficiency even if the trade-off is of mild lower extremity edema. Compression stockings might help as well. The etiology of the patient's mild elevation in PA pressures, tricuspid insufficiency, and dilated inferior vena cava should be explored, but this can be pursued in the outpatient setting. Smoking cessation was discussed and highly recommended. I could not elicit a history of any past pneumonias or severe respiratory events. She has never taken diet pills and she never had events that would suggest a pulmonary embolism in the past. Her current lab work and evaluation does not suggest a pulmonary embolism. It is possible that her current event was related to an occult or early urinary tract infection with secondary vasodilatation. She is on a significant medication regimen that would put her at risk for blood pressure drops and dizziness as well, and this regimen may want to be reviewed inpatient or outpatient by her physician team to see if medications could be backed off on. With respect to the PVCs, as these were present several years ago, I doubt that they are responsible for her acute presentation. I explained to the patient that caffeine, alcohol, sleep, electrolytes can all impact on the degree of ventricular ectopy. Potentially, we could get an MRI as an outpatient to evaluate her heart structurally, and especially right heart, to ensure there is no underlying myocardial abnormalities. An outpatient event monitor and/or Holter monitors could be done to look at the ventricular burden in addition to looking for other tachy and bradyarrhythmias when she is in her usual environment. PLAN/RECOMMENDATIONS: Further recommendations will be made following her treadmill stress test and it sounds like there is room for improvement in lifestyle. Thank you for allowing me to assist in this nice young woman's care. CC: Hospitalist Service; Marcia Reyes NP* [id number]/[facility] #: [id number] [place]
[2016-06-02 05:51] LABS: BUN/Creatinine Ratio 9.3 (8-20); Calcium 8.5 mg/dL (8.6-10.3); EGFR African American 120.1 (>60); EGFR Non-African American 93.4 (>60)
[2016-06-02] MEDS: Acetaminophen TAB* 325 MG PO PRN (07:37)
[2016-06-02] MEDS: Topiramate TAB(*) 25 MG PO SCH (07:37)
[2016-06-02 09:35] VITALS: BP 128/54
[2016-06-02] MEDS: Ondansetron INJ* 2 MG/ML VIAL IV PRN (10:59)
[2016-06-02] MEDS: Calcium Carbonate CHEW TAB* 500 MG (TUMS) PO SCH (13:06)
[2016-06-02] MEDS: Multivitamins/Minerals TAB PO SCH (13:07)
[2016-06-02] MEDS: Venlafaxine EXT RELEASE CAP* 75 MG PO SCH (13:07)
[2016-06-02] MEDS: Cyanocobalamin TAB* 500 MCG PO SCH (13:07)
[2016-06-02] MEDS: Docusate CAP* 100 MG PO SCH (13:08)
[2016-06-02] MEDS: Sertraline* 50 MG TAB PO SCH (13:08)
[2016-06-02] MEDS: Cholecalciferol TAB* 1000 UNITS PO SCH (13:08)
--- NOTE | 2016-06-02 15:52 | PN ---
Hospitalist Progress Note . HOSPITALIST DISCHARGE NOTE: See dc instructions and summary by me. Patient stable for dc dc instructions reviewed with the patient at the bedside. DC patient home today.
== END 2016-06-02 16:00 | disposition home or self-care (01) ==
LOC: ED 17:25 → MEDTELE 19:28
PROVIDERS: ADMIT Internal Medicine; ATTEND Internal Medicine
DX: R55 Syncope and collapse (principal); N39.0 Urinary tract infection, site not specified; F41.9 Anxiety disorder, unspecified; F32.9 Major depressive disorder, single episode, unspecified; Z98.84 Bariatric surgery status; I49.3 Ventricular premature depolarization; Z79.899 Other long term (current) drug therapy; F17.210 Nicotine dependence, cigarettes, uncomplicated; Z88.5 Allergy status to narcotic agent; Z88.8 Allergy status to other drugs, medicaments and biological substances; Z32.02 Encounter for pregnancy test, result negative
CPT/HCPCS: 36415; 71010; 71275; 80048; 80053; 81003; 81015; 83605; 83735; 84439; 84443; 84484; 84702; 85025; 85379; 85652; 86140; 87040; 87086; 93005; 93306; 96361; 96365; 96375; 99284; A9270-GY; G0378; J0696; J2405; Q9967

== ENCOUNTER → 2016-07-20 13:49 | Emergency (ER) | payer BC ==
[2016-07-20 14:13] VITALS: BP 118/89
[2016-07-20 15:16] LABS: Urine Bacteria Absent (Absent); Urine Bilirubin Negative (Negative); Urine Glucose Negative (Negative); Urine Nitrite Negative (Negative)
[2016-07-20 15:26] LABS: Benzodiazepine Urine Screen None Detected (None Detect)
--- NOTE | 2016-08-02 10:53 | ED ---
Shelby Gee Rebecca, scribed for Ted Pinzon MD on 07/20/16 at 1426 . Palpitations / Dysrhythmia - HPI Summary HPI Summary: Pt is a 25 y/o F who presents to ED c/o palpitations characterized as fast. Sx began suddenly at 1300 after exiting the shower and lasted for approximately 1 hour. Sx aggravated and alleviated by nothing. Additionally c/o tingling/ cramping in the calf of the RLE, nausea, dizziness and lightheadedness. Dizziness characterized as the room spinning. Denies fever, chills, diaphoresis , SOB, V/D. Denies vaginal bleeding. Negative LOC. Denies recent travel, flights or illnesses. Sleeps 4-5 hours per night due to insomnia. Prior similar episode while the pt was working at [employer] during which she had LOC and was admitted to [facility] for 3 days. 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 Feng which had to be rescheduled for August 15. PMHx anxiety. Current episode "didn't feel like my regular anxiety." LNMP 6 weeks ago - has an IUD and is sexually active. - History of Current Complaint Chief Complaint: EDDysrhythmPalp Time Seen by Provider: 07/20/16 14:10 Hx Obtained From: Patient Onset/Duration: Sudden Onset, Resolved Severity Initially: Moderate Severity Currently: None Character: Fast Aggravating: Nothing Alleviating: Nothing Associated Signs & Symptoms: Lightheadedness, Dizzy, Nausea Related History: Similar Episode/Dx as - Prior episode during which she experienced LOC - Allergy/Home Medications Allergies/Adverse Reactions: Allergies Allergy/AdvReac Type Severity Reaction Status Date / Time Hydrocodone [From Vicodin] Allergy Severe Swelling Verified 07/20/16 14:09 Of Face,Lips,& Throat Latex Allergy Rash Verified 07/20/16 14:09 wheat Allergy Hives Uncoded 07/20/16 14:09 PMH/Surg Hx/FS Hx/Imm Hx Endocrine/Hematology History: Denies: Hx Anticoagulant Therapy, Hx Diabetes, Hx Thyroid Disease Cardiovascular History: Denies: Hx Congestive Heart Failure, Hx Hypertension, Hx Pacemaker/ICD Respiratory History: Reports: Hx Asthma Denies: Hx Chronic Obstructive Pulmonary Disease (COPD) GI History: Reports: Hx Ulcer, Other GI Disorders - GERD. S/P Gastric Bypass. Current RUQ pain. GALLBLADDER PAIN Denies: Hx Gastroesophageal Reflux Disease History: Reports: Hx Kidney Infection, Other Problems/Disorders - UTI 3 WEEKS AGO,TX AND PT STATES BETTER NOW, MULTIPLE CYSCT ON OVARIES OB' Denies: Hx Renal Disease Sensory History: Reports: Hx Cataracts, Hx Contacts or Glasses - CONTACTS Denies: Hx Hearing Aid Opthamlomology History: Reports: Hx Cataracts, Hx Contacts or Glasses - CONTACTS Neurological History: Reports: Hx Headaches, Hx Migraine - LAST ONE 05/2015 LASTED 2 DAYS Denies: Hx Dementia, Hx Seizures Psychiatric History: Reports: Hx Anxiety, Hx Depression Denies: Hx Panic Disorder, Hx Substance Abuse - Surgical History Surgery Procedure, Year, and Place: TUBES in bilat ears AT AGE 15. WISDOM TEETH. Gastric by pass 11/12/13. colycystectomy 08/12 Hx Anesthesia Reactions: No Infectious Disease History: No Infectious Disease History: Denies: Hx Clostridium Difficile, Hx Hepatitis, Hx Human Immunodeficiency Virus (HIV), Hx of Known/Suspected MRSA, Hx Shingles, Hx Tuberculosis, Hx Known/ Suspected VRE, Hx Known/Suspected VRSA, History Other Infectious Disease, Traveled Outside the [place] in Last 30 Days - Family History Known Family History: Positive: Hypertension - Social History Alcohol Use: Weekly Alcohol Amount: 4 BEERS X WEEK Hx Substance Use: No Substance Use Type: Reports: None Hx Tobacco Use: Yes Smoking Status (MU): Current Every Day Smoker Type: Cigarettes Amount Used/How Often: 2 CIG/DAY Have You Smoked in the Last Year: Yes Review of Systems Negative: Fever, Chills, Skin Diaphoresis Negative: Erythema Negative: Sore Throat Positive: Palpitations - fast. Negative: Chest Pain Negative: Shortness Of Breath, Cough Positive: Nausea. Negative: Abdominal Pain, Vomiting, Diarrhea Positive: other - Denies vaginal bleeding. Negative: dysuria, hematuria Positive: Myalgia - Tingling/cramping in the calf of the RLE. Negative: Edema Negative: Rash Neurological: Other - Dizziness (room spinning) and lightheadedness All Other Systems Reviewed And Are Negative: Yes Physical Exam - Summary Physical Exam Summary: Constitutional: Well-developed, Well-nourished, Alert. (-) Distressed Skin: Warm, Dry HENT: Eyes: Conjunctiva normal Neck: Musculoskeletal ROM normal neck. (-) JVD, (-) Stridor, (-) Tracheal deviation Cardio: Rhythm regular, rate normal, Heart sounds normal; Intact distal pulses; The pedal pulses are 2+ and symmetric. Radial pulses are 2+ and symmetric. (-) Murmur Pulmonary/Chest wall: Effort normal. (-) Respiratory distress, (-) Wheezes, (-) Rales Abd: Soft. (-) Tenderness, ~(-) Distension, (-) Guarding, (-) Rebound Musculoskeletal: (-) Edema Lymph: (-) Cervical adenopathy Neuro: Alert, Oriented x3, Strength normal, Cranial nerves II-XII are grossly intact. (-) Dysmetria, (-) Nystagmus, (-) Ataxia by finger to nose testing, (-) Sensory deficit. Psych: Mood and affect Normal Triage Information Reviewed: Yes Vital Signs On Initial Exam: Initial Vitals Temp Pulse Resp BP Pulse Ox 98.8 F 74 22 118/89 100 07/20/16 14:10 07/20/16 14:10 07/20/16 14:10 07/20/16 14:10 07/20/16 14:10 Vital Signs Reviewed: Yes Diagnostics - Vital Signs Vital Signs Temp Pulse Resp BP Pulse Ox 07/20/16 14:10 98.8 F 74 22 118/89 100 - Laboratory Lab Statement: Any lab studies that have been ordered have been reviewed, and results considered in the medical decision making process. - EKG 1354 Cardiac Rate: NL - 72 bpm EKG Rhythm: Sinus Rhythm EKG Interpretation: No STEMI Re-Evaluation - Re-Evaluation First Eval Re-Evaluation Time: 15:13 Change: Unchanged Comment: Talked to her [id number] and considering she has her cardiology appointment follow up already scheduled, the pt reports she "feels like we're going to play the same game as we did last time." Expresses that she does not want her blood work done, due to anxiety exacerbation. States that her anxiety is currently worse and that she would prefer to be D/C. Explained the process of singing out AMA and the dangers of doing so. Course/Dx - Course Assessment/Plan: Pt is a 25 y/o F who presents to ED c/o palpitations characterized as fast for 1 hour [employer]. Additionally c/o nausea, lightheadedness, dizziness (room spinning) and cramping/tingling in the RLE. Denies LOC, fever, chills, diaphoresis, SOB, V/D, vaginal bleeding. Negative LOC. Prior similar episode during which she experienced LOC and was admitted to [facility] for 3 days. The patient expressed that she would like to sign out AMA, given that she has a cardiology appointment scheduled in a few weeks. The dangers of doing so were expressed to her. Pt will sign out AMA with Dx of palpitations and dizziness. - Diagnoses Provider Diagnoses: Palpitations, Dizziness Discharge - Discharge Plan Condition: Good Disposition: ADMITTED TO [facility] The documentation as recorded by the Shelby herrera Rebecca accurately reflects the service I personally performed and the decisions made by me, Ted Pinzon MD.
== END | disposition short-term general hospital (02) ==
LOC: ED 13:49
DX: R00.2 Palpitations (principal); J45.909 Unspecified asthma, uncomplicated; F17.210 Nicotine dependence, cigarettes, uncomplicated; Z88.5 Allergy status to narcotic agent; Z79.899 Other long term (current) drug therapy
CPT/HCPCS: 36415; 80307; 81003; 81015; 87077; 87086; 87186; 93005; 99282

== ENCOUNTER 2016-08-23 07:23 | Emergency (ER) | payer BC ==
[2016-08-23 07:32] VITALS: BP 135/76
--- NOTE | 2016-08-23 08:34 | UC ---
Fabian Gee Aidan, scribed for Jonatan Lo MD on 08/23/16 at 0825 . Ear Complaint HPI - HPI Summary HPI Summary: 25 y/o female presents to the Urgent Care with a complaint of acute, constant, moderate, bilateral ear pain that is worse on the right side. The pain is described as a pressure, and she mentions a draining sensation in the left ear. Associated symptoms include a sore throat and a [id number] (8/10) CERVANTES that has persisted for the past 5 days and resulted from her falling down stairs. The fall resulted from an episode of hypotension, during which she did lose consciousness. Pt took Tylenol and Ibuprofen with mild relief. She denies any rhinorrhea. Hx of syncopal episodes and gastric bypass. - History of Current Complaint Chief Complaint: UCEar Stated Complaint: EAR PAIN Time Seen by Provider: 08/23/16 07:54 Hx Obtained From: Patient Hx Last Menstrual Period: 2 weeks ago ?: No Onset/Duration: Sudden Onset, Lasting Days, Still Present Severity Initially: Moderate Severity Currently: Moderate Pain Intensity: 8 - CERVANTES Pain Scale Used: 0-10 Numeric Aggravating Factors: Nothing - unknown Alleviating Factors: OTC Meds - Tylenol and Ibuprofen Associated Signs/Symptoms: Negative: Swelling @ - CERVANTES, sore throat - Allergies/Home Medications Allergies/Adverse Reactions: Allergies Allergy/AdvReac Type Severity Reaction Status Date / Time Hydrocodone [From Vicodin] Allergy Severe Swelling Verified 07/20/16 14:09 Of Face,Lips,& Throat Latex Allergy Rash Verified 07/20/16 14:09 wheat Allergy Hives Uncoded 07/20/16 14:09 PMH/Surg Hx/FS Hx/Imm Hx Other History Of: Negative For: Anticoagulant Therapy - Surgical History Surgical History: Yes Surgery Procedure, Year, and Place: TUBES in bilat ears AT AGE 15. WISDOM TEETH. Gastric by pass 11/12/13. colycystectomy 08/12 - Family History Known Family History: Positive: Hypertension - Social History Occupation: Employed Full-time Lives: Alone Alcohol Use: Weekly Alcohol Amount: 4 BEERS X WEEK Substance Use Type: None Smoking Status (MU): Light Every Day Tobacco Smoker Type: Cigarettes Amount Used/How Often: 2 CIG/DAY Have You Smoked in the Last Year: Yes When Did the Patient Quit Smoking/Using Tobacco: 03/2015 - Immunization History Most Recent Influenza Vaccination: 2016 Most Recent Tetanus Shot: WITHIN 10 YRS Most Recent Pneumonia Vaccination: NONE Review of Systems Constitutional: Negative Skin: Negative Eyes: Negative ENT: Sore Throat, Ear Ache Respiratory: Negative Cardiovascular: Negative Gastrointestinal: Negative Genitourinary: Negative Motor: Negative Neurovascular: Negative Musculoskeletal: Arthralgia - rib pain Neurological: Headache Psychological: Negative All Other Systems Reviewed And Are Negative: Yes Physical Exam Triage Information Reviewed: Yes Appearance: Well-Appearing, No Pain Distress Vital Signs: Initial Vital Signs Temp 97.6 F 08/23/16 07:28 Pulse 68 08/23/16 07:28 Resp 16 08/23/16 07:28 BP 135/76 08/23/16 07:28 Pulse Ox 99 08/23/16 07:28 Vital Signs Reviewed: Yes Eye Exam: Normal Eyes: Positive: Other: - PERRL, EOMI ENT Exam: Normal ENT: Positive: Pharynx normal - posterior pharynx benign, TMs normal Neck exam: Normal Neck: Positive: Supple, Nontender Respiratory Exam: Normal Respiratory: Positive: Lungs clear, Other: - lungs clear, CTA, breath sounds present Cardiovascular: Positive: RRR Abdominal Exam: Normal Abdomen Description: Positive: Nontender, Soft Bowel Sounds: Positive: Present Musculoskeletal Exam: Normal Musculoskeletal: Positive: Strength Intact, ROM Intact, Other: - Tender to right ribcage Neurological Exam: Normal Neurological: Positive: Alert Psychological Exam: Normal Psychological: Positive: Age Appropriate Behavior Skin Exam: Normal Ear Complaint Course/Dx - Course Course Of Treatment: 25 y/o female presents with a sore throat and bilateral ear pain. She also has a CERVANTES S/P a syncopal event where she fell and hit her head. She declined showing us her ribs and she declines a head CT or any imaging of her head/neck for her fall. She is being evaluated now for her syncopal episodes and declined further evaluation for that. Patient reports falling down 15 steps on 08/18/16. She is not sure if she passed out and fell or struck her head and had LOC with amnesia. She also struck her right ribs. She states she is under evaluation by cardiology for the syncopal episodes. She declines further evaluation here for the syncope, head and rib injuries. She declines imaging for her injuries. No abx at this time for rapid strep negative pharyngitis. - Differential Dx/Diagnosis Provider Diagnoses: pharyngitis Discharge - Discharge Plan Condition: Stable Disposition: HOME Patient Education Materials: Pharyngitis (ED) Referrals: Marcia Reyes NP [Primary Care Provider] - Additional Instructions: FOLLOW UP WITH YOUR DOCTOR. GET RECHECKED FOR ANY WORSENING OF YOUR CONDITION OR QUESTIONS OR CONCERNS. The documentation as recorded by the Fabian herrera Aidan accurately reflects the service I personally performed and the decisions made by me, Jonatan Lo MD.
== END 2016-08-23 08:15 | disposition home or self-care (01) ==
LOC: UCEAST 07:23
DX: Z72.0 Tobacco use (principal); J02.9 Acute pharyngitis, unspecified
CPT/HCPCS: 87651; 99212; G0463

== ENCOUNTER 2016-11-20 08:36 | Emergency (ER) | payer BC, MEDICAID, OTHER ==
[2016-11-20] MEDS ORDERED: NS 0.9% 1000 ML* 1,000 ML IV ONE (09:11)
[2016-11-20] MEDS ORDERED: Ketorolac INJ* 60 MG/2 ML VIAL IM ONE (09:12)
[2016-11-20] MEDS ORDERED: Ketorolac INJ* 60 MG/2 ML VIAL IV PUSH ONE (09:48)
[2016-11-20 10:44] VITALS: BP 117/52
--- NOTE | 2016-11-20 10:55 | UC ---
Jacky Gee SooYoung, scribed for Geri Gabriel MD on 11/20/16 at 0857 . Headache HPI - HPI Summary HPI Summary: A 26 y/o F presents to [facility] with c/o acute on chronic CERVANTES for past week and worsening two days ago. She states it's one of the worst migraines she's ever had. Associated sx: multiple episodes of n/v, diarrhea onset last night, mild abd pain, photophobia. Denies fever. She took a Zofran at approx 0400. Pert PMHx : CERVANTES/migraines. Pt usually takes 50mg topromax at night for migraine prevention , but has been out of it for past 2 weeks because she is in between doctors. She 's been using Ibuprofen and Tylenol to keep the CERVANTES mild. Pt is awaiting an appt at [facility]. 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 She notes feeling mildly improved early yesterday, but after eating salmon, had episodes of n/v/d. Last urinated last night, BM this AM. - History Of Current Complaint Stated Complaint: VOMITING AND HEADACHE Time Seen by Provider: 11/20/16 08:45 Hx Obtained From: Patient Hx Last Menstrual Period: 10/26/16 Onset/Duration: Gradual Onset, Lasting Days, Still Present Onset Of Symptoms: Still Present Currently Pain Is: Current Pain Scale(0-10)= - 9, Severe Pain Intensity: 9 Pain Scale Used: 0-10 Numeric Timing: Constant Character: Sharp - and stabbing Location of Headache: Diffuse - R worse than L Associated Signs And Symptoms: Positive: Nausea, Vomiting, Other (Noted In Comments) - diarrhea, mild abd pain, photophobia - Allergies/Home Medications Allergies/Adverse Reactions: Allergies Allergy/AdvReac Type Severity Reaction Status Date / Time Hydrocodone [From Vicodin] Allergy Severe Swelling Verified 07/20/16 14:09 Of Face,Lips,& Throat Latex Allergy Rash Verified 07/20/16 14:09 wheat Allergy Hives Uncoded 07/20/16 14:09 Home Medications: Home Medications Ibuprofen [Ibuprofen 200 MG] 11/20/16 [History] PMH/Surg Hx/FS Hx/Imm Hx Previously Healthy: No Cardiovascular History: Other Other Cardiovascular History: symptomatic bradycardia Respiratory History: Asthma GI/ History: Gastroesophageal Reflux, Ulcer, Other Other GI/ History: Kidney infections Neurological History: Migraine Psychological History: Anxiety, Depression Other History Of: Negative For: Anticoagulant Therapy - Surgical History Surgical History: Yes Surgery Procedure, Year, and Place: TUBES in bilat ears AT AGE 15. WISDOM TEETH. Gastric by pass 11/12/13. colycystectomy 08/12 - Family History Known Family History: Positive: Cardiac Disease, Hypertension, Diabetes, Other - CA, overweight/obesity - Social History Occupation: Employed Full-time Lives: Alone Alcohol Use: Weekly Alcohol Amount: 4 BEERS X WEEK Substance Use Type: None Smoking Status (MU): Light Every Day Tobacco Smoker Type: Cigarettes Amount Used/How Often: 2 CIG/DAY Have You Smoked in the Last Year: Yes When Did the Patient Quit Smoking/Using Tobacco: 03/2015 Household Exposure Type: Cigarettes - Immunization History Most Recent Influenza Vaccination: 2015 Most Recent Tetanus Shot: WITHIN 10 YRS Most Recent Pneumonia Vaccination: NONE Review of Systems Constitutional: Negative Skin: Negative Eyes: Negative ENT: Negative Respiratory: Negative Cardiovascular: Negative Gastrointestinal: Abdominal Pain - mild, Vomiting, Diarrhea, Nausea Genitourinary: Negative Motor: Negative Neurovascular: Negative Musculoskeletal: Negative Neurological: Headache Psychological: Negative All Other Systems Reviewed And Are Negative: Yes Physical Exam Triage Information Reviewed: Yes Appearance: Ill-Appearing, Pain Distress - moderate Vital Signs: Initial Vital Signs Temp 99 F 11/20/16 08:43 Pulse 80 11/20/16 08:43 Resp 16 11/20/16 08:43 BP 117/74 11/20/16 08:43 Pulse Ox 100 11/20/16 08:43 Eyes: Positive: Conjunctiva Clear, Other: - YVONNE, eom full ENT: Positive: Pharynx normal Neck: Positive: Supple, Nontender, No Lymphadenopathy Respiratory: Positive: Lungs clear, Normal breath sounds Cardiovascular: Positive: RRR, No Murmur Abdomen Description: Positive: Nontender, No Organomegaly, Soft Bowel Sounds: Positive: Present Musculoskeletal Exam: Normal Neurological Exam: Other - over course of time, more alert, gait and speech normal. No ataxia. Neurological: Positive: Alert, Muscle Tone Normal, Fatigued, Other: - no sided weakness CNII-XII normal Skin Exam: Normal Re-Evaluation - Re-Evaluation 1 Re-Evaluation Time: 10:13 Change: Improved Comment: Pain has decreased to 7/10, photophobia is resolving. 2 Re-Evaluation Time: 10:40 Change: Improved Comment: CERVANTES still present, nausea has decreased, no more n/v, requesting D/C with med management. Headache Course/Dx - Course Course Of Treatment: Pt is a 26 y/o F presenting with CERVANTES, n/v/d and mild abd pain onset ongoing for two days. Pert PMHx: migraines. Pt medications reviewed this visit. BP is normal. Suspect food borne illness as cause of diarrhea and vomting. Add scopolamine patch given lack of response to zofran. Resume use of topiramate to decrease migraine frequency. - Differential Dx/Diagnosis Differential Diagnosis/HQI/PQRI: Meningitis, Migraine, Viral Syndrome, Other - gastroentertitis. Provider Diagnoses: migraine headache. gastroenteritis, possible food borne illness. risk of dehydration due to s/p post gastric bypass. Discharge - Discharge Plan Condition: Stable Disposition: HOME Prescriptions: Scopolamine 1.5 mg* PATCH* [Transderm-Scop 1.5 mg Patch*] 1 patch TRANSDERM Q72H #4 patch Topiramate [Topiramate ER 25 mg cap] 25 mg PO BEDTIME #45 cap Patient Education Materials: Dehydration (ED), Migraine Headache (ED) Forms: *Work Release Referrals: Marcia Reyes, STENCILING MACHINE TENDER [Primary Care Provider] - Additional Instructions: Use scopolamine patch for nausea as discussed. I advise you to resume use of topiramate, beginning with a 25mg dose for 2 weeks , then increasing to 50mg. Follow up with your new primary care physician at [facility] as soon as possible. The documentation as recorded by the Jacky herrera SooYoung accurately reflects the service I personally performed and the decisions made by me, Geri Gabriel MD.
== END 2016-11-20 10:56 | disposition home or self-care (01) ==
LOC: UCEAST 08:36
DX: G43.909 Migraine, unspecified, not intractable, without status migrainosus (principal); K52.9 Noninfective gastroenteritis and colitis, unspecified; Z98.84 Bariatric surgery status; J45.909 Unspecified asthma, uncomplicated; K21.9 Gastro-esophageal reflux disease without esophagitis; F41.9 Anxiety disorder, unspecified; F32.9 Major depressive disorder, single episode, unspecified; Z88.5 Allergy status to narcotic agent; F17.210 Nicotine dependence, cigarettes, uncomplicated
CPT/HCPCS: 96360; 96374; 99212; G0463; J1885

== ENCOUNTER 2017-01-11 16:46 | Emergency (ER) | payer OTHER ==
[2017-01-11 17:15] VITALS: BP 149/71
[2017-01-11] MEDS ORDERED: Ketorolac INJ* 60 MG/2 ML VIAL IM ONE (17:59)
--- NOTE | 2017-01-11 20:47 | UC ---
Liya Gee Thomas, scribed for Jerome Chester MD on 01/11/17 at 1750 . Lower Extremity/Ankle HPI - HPI Summary HPI Summary: The pt is a 26 y/o F presenting to Urgent Care c/o right knee pain that suddenly began today at 09:30. The patient was standing up from a sitting position when she heard a pop. The patient denies trauma or fall. The pain has gotten progressively worse throughout the day. The pain radiates down to her right foot. The pain is constant. The pain is described as shooting. The pain is rated 8/10. The pain is aggravated by palpation and movement. It is alleviated by nothing. 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 Pt additionally c/o numbness to the toes of her right foot. - History of Current Complaint Chief Complaint: UCLowerExtremity Stated Complaint: KNEE PAIN Time Seen by Provider: 01/11/17 17:28 Hx Obtained From: Patient Hx Last Menstrual Period: one month ago, IUD Onset/Duration: Lasting Hours - onset today at 09:30, Still Present Severity Currently: Moderate Pain Intensity: 8 Pain Scale Used: 0-10 Numeric Aggravating Factor(s): Ambulation, Other - Palpation Alleviating Factor(s): Rest, Ice Able to Bear Weight: No - Allergies/Home Medications Allergies/Adverse Reactions: Allergies Allergy/AdvReac Type Severity Reaction Status Date / Time Hydrocodone [From Vicodin] Allergy Severe Swelling Verified 01/11/17 17:15 Of Face,Lips,& Throat Latex Allergy Rash Verified 01/11/17 17:15 wheat Allergy Hives Uncoded 01/11/17 17:15 PMH/Surg Hx/FS Hx/Imm Hx Previously Healthy: No - Migraines; NEGATIVE: DM Other History Of: Negative For: Anticoagulant Therapy - Surgical History Surgical History: Yes Surgery Procedure, Year, and Place: TUBES in bilat ears AT AGE 15. WISDOM TEETH. Gastric by pass 11/12/13. colycystectomy 08/12 - Family History Known Family History: Positive: Cardiac Disease, Hypertension, Diabetes, Other - CA, overweight/obesity - Social History Alcohol Use: Weekly Alcohol Amount: 4 BEERS X WEEK Substance Use Type: None Smoking Status (MU): Light Every Day Tobacco Smoker Type: Cigarettes Amount Used/How Often: 2 CIG/DAY Have You Smoked in the Last Year: Yes When Did the Patient Quit Smoking/Using Tobacco: 03/2015 Household Exposure Type: Cigarettes - Immunization History Most Recent Influenza Vaccination: 2016 Most Recent Tetanus Shot: WITHIN 10 YRS Most Recent Pneumonia Vaccination: NONE Review of Systems Musculoskeletal: Other: - Right ankle pain Neurological: Numbness - to toes of right foot Is Patient Immunocompromised?: No All Other Systems Reviewed And Are Negative: Yes Physical Exam Triage Information Reviewed: Yes Vital Signs: Initial Vital Signs Temp 97.3 F 01/11/17 17:11 Pulse 81 01/11/17 17:11 Resp 18 01/11/17 17:11 BP 149/71 01/11/17 17:11 Pulse Ox 100 01/11/17 17:11 Vital Signs Reviewed: Yes - Additional Comments VITAL SIGNS: Reviewed. GENERAL: Patient is a well developed and nourished female who is lying comfortable in the stretcher. Patient is not in any acute respiratory distress. HEAD AND FACE: Normocephalic EYES: PERRLA, EOMI x 2. EARS: Hearing grossly intact. MOUTH: Oropharynx within normal limits. NECK: Supple, trachea is midline, no adenopathy, no JVD, no carotid bruit. CHEST: Symmetric, no tenderness at palpation LUNGS: Clear to auscultation bilaterally. No wheezing or crackles. CVS: Regular rate and rhythm, S1 and S2 present, no murmurs or gallops appreciated. ABDOMEN: Soft, non-tender. Bowel sounds are normal. No abdominal abnormal pulsations. EXTREMITIES: There is right knee swelling. There is no erythema or deformity. There is decreased range of motion. There is positive tenderness along the medial ligament. Trochanter is negative. Otherwise, full ROM in all other major joints, no edema, no cyanosis or clubbing. NEURO: Alert and oriented x 3. No acute neurological deficits. Speech is normal and follows commands. SKIN: Dry and warm Lower Extremity Course/Dx - Course Course Of Treatment: The patient is a 26 y/o female presenting to Urgent Care c/ o right knee pain that suddenly began today at 09:30. The patient was standing up from a sitting position when she heard a pop. The patient denies trauma or fall. At urgent care, she was given Toradol. The patient declines X-rays. The patient was given crutches and a knee immobilizer. She will be discharged home with a referral to orthopedics and a prescription for Tramadol. - Differential Dx/Diagnosis Differential Diagnosis/HQI/PQRI: Bursitis, Cellulitis, Sprain, Strain Provider Diagnoses: Right knee pain. Discharge - Discharge Plan Condition: Stable Disposition: HOME Prescriptions: traMADol TAB* [Ultram*] 25 mg PO Q6HR PRN #12 tab MDD 4 PRN Reason: Pain Patient Education Materials: Crutch Instructions (ED), Knee Pain (ED), Knee Immobilizer (ED) Forms: *Work Release Referrals: Heydi Ewing MD [Medical Doctor] - 3 Days Additional Instructions: Follow up with your orthopedics in 3 days. Return to urgent care for any new or worsening symptoms. The documentation as recorded by the Liya herrera Thomas accurately reflects the service I personally performed and the decisions made by , Jerome Chester MD.
== END 2017-01-11 18:20 | disposition home or self-care (01) ==
LOC: UCEAST 16:46
DX: M25.561 Pain in right knee (principal); Z72.0 Tobacco use
CPT/HCPCS: 99212; G0463; J1885

== ENCOUNTER 2017-03-14 08:07 | Emergency (ER) | payer OTHER ==
--- NOTE | 2017-03-14 08:41 | UC ---
Dizzy HPI HPI Summary: ONSET OF MIGRAINE CERVANTES LAST NIGHT. THIS MORNING SUDDENLY FELT WORSE WITH PALPITATIONS, DIZZINESS, NAUSEA AND "JUST NOT FEELING RIGHT". PT HAS H/O BARIATRIC SURGERY, ELECTROLYTE ABNORMALITIES, SYMPTOMATIC BRADYCARDIA, PVCS. - History Of Current Complaint Stated Complaint: DIZZY NAUSEA Time Seen by Provider: 03/14/17 08:08 Hx Obtained From: Patient Hx Last Menstrual Period: one month ago, IUD Onset/Duration: Sudden Onset, Lasting Hours Timing: Constant Severity Initially: Moderate Severity Currently: Moderate Pain Intensity: 9 Pain Scale Used: 0-10 Numeric Character: Room Spinning, Dizzy Aggravating Factor(s): Position Change Alleviating Factor(s): Nothing Associated Signs And Symptoms: Positive: Nausea, Palpitations - Allergies/Home Medications Allergies/Adverse Reactions: Allergies Allergy/AdvReac Type Severity Reaction Status Date / Time Hydrocodone [From Vicodin] Allergy Severe Swelling Verified 03/14/17 08:13 Of Face,Lips,& Throat Latex Allergy Rash Verified 03/14/17 08:13 wheat Allergy Hives Uncoded 03/14/17 08:13 PMH/Surg Hx/FS Hx/Imm Hx Other Cardiovascular History: SYMPTOMATIC BRADYCARDIA Respiratory History: Asthma Neurological History: Migraine Other History Of: Negative For: Anticoagulant Therapy - Surgical History Surgical History: Yes Surgery Procedure, Year, and Place: TUBES in bilat ears AT AGE 15. WISDOM TEETH. Gastric by pass 11/12/13. colycystectomy 08/12 - Family History Known Family History: Positive: Cardiac Disease, Hypertension, Diabetes, Other - CA, overweight/obesity - Social History Alcohol Use: Weekly Alcohol Amount: 4 BEERS X WEEK Substance Use Type: None Smoking Status (MU): Light Every Day Tobacco Smoker Type: Cigarettes Amount Used/How Often: 2 CIG/DAY Have You Smoked in the Last Year: Yes When Did the Patient Quit Smoking/Using Tobacco: 03/2015 Household Exposure Type: Cigarettes - Immunization History Most Recent Influenza Vaccination: 2017 Most Recent Tetanus Shot: WITHIN 10 YRS Most Recent Pneumonia Vaccination: NONE Review of Systems Constitutional: Other - DIZZY Respiratory: Negative Cardiovascular: Palpitations Gastrointestinal: Nausea Neurological: Headache All Other Systems Reviewed And Are Negative: Yes Physical Exam Triage Information Reviewed: Yes Appearance: No Pain Distress, Well-Nourished, Ill-Appearing - MODERATE Vital Signs: Initial Vital Signs Pulse 84 03/14/17 08:10 Resp 22 03/14/17 08:10 BP 138/74 03/14/17 08:10 Pulse Ox 100 03/14/17 08:10 Vital Signs Reviewed: Yes Eyes: Positive: Conjunctiva Clear ENT: Positive: Hearing grossly normal Neck: Positive: Supple Respiratory Exam: Normal Cardiovascular Exam: Normal Abdomen Description: Positive: Soft Musculoskeletal: Positive: No Edema Neurological: Positive: Alert Psychological: Positive: Age Appropriate Behavior Skin: Negative: rashes Diagnostics - EKG Cardiac Rate: NL Cardiac Rhythm: Sinus: Normal Ectopy: PVCs ST Segment: Non-Specific Dizzy Course/Dx - Differential Dx/Diagnosis Provider Diagnoses: 1. NAUSEA/DIZZY/MIGRAINE. 2. ABNORMAL EKG - Physician Notifications Discussed Patient Care With: Lu Rodríguez - TO [facility] [place] ED BY AMBULANCE Time Discussed With Above Provider: 08:45 Instructed by Provider To: MD Will See In ED Discharge - Discharge Plan Condition: Stable Disposition: TRANS HIGHER LVL OF CARE FAC Referrals: Marcia Reyes NP [Primary Care Provider] -
[2017-03-14] MEDS ORDERED: NS 0.9% 1000 ML* 1,000 ML IV SCH (08:45)
[2017-03-14 08:51] VITALS: BP 135/88
== END 2017-03-14 09:00 | disposition short-term general hospital (02) ==
LOC: UCEAST 08:07
DX: G43.909 Migraine, unspecified, not intractable, without status migrainosus (principal); R94.31 Abnormal electrocardiogram [ECG] [EKG]; F17.210 Nicotine dependence, cigarettes, uncomplicated; Z88.5 Allergy status to narcotic agent
CPT/HCPCS: 81003; 87086; 93005; 99213; G0463

== ENCOUNTER 2017-03-14 09:28 | Emergency (ER) | payer OTHER ==
[2017-03-14] MEDS ORDERED: NS 0.9% 1000 ML* 1,000 ML IV ONE (09:36)
[2017-03-14 10:07] LABS: ABS Basophils 0.1 10^3/ul (0-0.2); ABS Eosinophils 0.1 10^3/ul (0-0.6); ABS Lymphocytes 1.7 10^3/ul (1.0-4.8); ABS Monocytes 0.6 10^3/ul (0-0.8); ABS Neutrophils 4.7 10^3/ul (1.5-7.7); ABS Nucleated RBC 0 10^3/ul; Eosinophil % 1.4 % (0-6); Hematocrit 39 % (35-47); Hemoglobin 13.1 g/dl (12.0-16.0); Lymphocyte % 23.5 % (25-47); Mean Corpuscular HGB Conc 34 g/dl (31-36); Mean Corpuscular Hemoglobin 29 pg (27-31); Mean Corpuscular Volume 87 fL (80-97); Mean Platelet Volume 9 um3 (7.4-10.4); Nucleated Red Blood Cells % 0; Platelet Count 214 10^3/ul (150-450); Red Blood Count 4.51 10^6/ul (4.0-5.4); Red Cell Distribution Width 14 % (10.5-15); White Blood Count 7.2 10^3/ul (3.5-10.8)
[2017-03-14 10:20] LABS: INR 0.96 (0.77-1.02)
[2017-03-14] MEDS ORDERED: Morphine INJ* 4 MG/ML 1 ML CARPUJECT IV ONE ×2 (10:20→11:08)
[2017-03-14 10:23] LABS: EGFR Non-African American 94.1 (>60)
--- NOTE | 2017-03-14 10:45 | RAD ---
HISTORY: Dizziness, nausea COMPARISONS: May 31, 2016 VIEWS: 1: frontal portable view of the chest at 10:19 AM FINDINGS: LINES AND TUBES: None. CARDIOMEDIASTINAL SILHOUETTE: The cardiomediastinal silhouette is normal for portable technique. PLEURA: The costophrenic angles are sharp. No pleural abnormalities are noted. LUNG PARENCHYMA: The lungs are clear. ABDOMEN: The upper abdomen is clear. There is no subphrenic gas. BONES AND SOFT TISSUES: No bone or soft tissue abnormalities are noted. IMPRESSION: NO ACTIVE CARDIOPULMONARY DISEASE.
[2017-03-14] MEDS ORDERED: Ondansetron INJ* 2 MG/ML VIAL ONE (11:00)
[2017-03-14] MEDS ORDERED: Scopolamine 1.5 mg* PATCH TRANSDERM SCH (11:00)
[2017-03-14] MEDS ORDERED: Ondansetron INJ* 2 MG/ML VIAL IV ONE (11:02)
[2017-03-14] MEDS ORDERED: Sertraline* 100 MG TAB PO ONE ×2 (11:18→11:19)
[2017-03-14 12:19] LABS: Urine Appearance Clear
[2017-03-14 12:20] LABS: Urine Blood Negative (Negative); Urine Ketones Negative (Negative); Urine Protein Negative (Negative); Urine Urobilinogen Negative (Negative)
[2017-03-14 12:26] LABS: Urine Color Yellow
[2017-03-14] MEDS ORDERED: Pantoprazole IV* 40 MG IV ONE (13:06)
[2017-03-14 13:49] VITALS: BP 116/50
--- NOTE | 2017-03-14 19:55 | ED ---
Mckay Gee Angela, scribed for Britany Cisse MD on 03/14/17 at 0952 . Headache - HPI Summary HPI Summary: This pt is a 26 y/o female presenting to [facility] via EMS from [facility] c/o worsening headache since 18:00 last night. Pt reports she didn't feel right and has been having a headache for the last couple of weeks with shooting pain down her shoulder. She states she was not sure if her pain on shoulders was due to working out. Her migraine headache worsened since last night at 18:00. Pt describes her migraine radiates from the back of her head to the frontal area. This morning pt notes she couldn't respond or "grasp" to what her co-workers were saying, although she was able to understand and hear. Pt additionally c/o dizziness, palpitations. She describes her heart is racing. She denies chest pain. Pt took Topamax at 01:00 am today and Excedrin migraine. She denies any caffeine intake. On May 2016, pt had the same thing happen to her and was diagnosed with vertigo. Pt was referred to a typist (Dr. Feng) and was put on a holter monitor; she states fell down and broke the monitor (which she had to pay ). Pt went to [facility] and was "brushed off." Pt has been diagnose with a migraine and sees neurologist (can't recall the name at the moment). Surgeries: Momo-en-Y gastric bypass in 2013. Pt took all her vitamins this morning but she did not take her anxiety medications. She usually takes Sertraline 100 mg. - History Of Current Complaint Chief Complaint: EDHeadache Stated Complaint: DIZZY/NAUSEA Time Seen by Provider: 03/14/17 09:35 Hx Obtained From: Patient Hx Last Menstrual Period: one month ago, IUD Onset/Duration: Started days ago, Still Present Currently Pain Is: Current Pain Scale(0-10)= - 9 Timing: Days Character: Migraine Aggravating Factor: Nothing Allevating Factors: Nothing Associated Signs And Symptoms: Dizziness Related History: Similar Episode/DX As: - May 2016 - Allergies/Home Medications Allergies/Adverse Reactions: Allergies Allergy/AdvReac Type Severity Reaction Status Date / Time Hydrocodone [From Vicodin] Allergy Severe Swelling Verified 03/14/17 08:13 Of Face,Lips,& Throat Latex Allergy Rash Verified 03/14/17 08:13 wheat Allergy Hives Uncoded 03/14/17 08:13 PMH/Surg Hx/FS Hx/Imm Hx Endocrine/Hematology History: Denies: Hx Anticoagulant Therapy, Hx Diabetes, Hx Thyroid Disease Cardiovascular History: Denies: Hx Congestive Heart Failure, Hx Hypertension, Hx Pacemaker/ICD Respiratory History: Reports: Hx Asthma Denies: Hx Chronic Obstructive Pulmonary Disease (COPD) GI History: Reports: Hx Ulcer, Other GI Disorders - GERD. S/P Gastric Bypass. Current RUQ pain. GALLBLADDER PAIN Denies: Hx Gastroesophageal Reflux Disease History: Reports: Hx Kidney Infection, Other Problems/Disorders - UTI 3 WEEKS AGO,TX AND PT STATES BETTER NOW, MULTIPLE CYSCT ON OVARIES OB' Denies: Hx Renal Disease Sensory History: Reports: Hx Cataracts, Hx Contacts or Glasses - CONTACTS Denies: Hx Hearing Aid Opthamlomology History: Reports: Hx Cataracts, Hx Contacts or Glasses - CONTACTS Neurological History: Reports: Hx Headaches, Hx Migraine - LAST ONE 05/2015 LASTED 2 DAYS Denies: Hx Dementia, Hx Seizures Psychiatric History: Reports: Hx Anxiety, Hx Depression Denies: Hx Panic Disorder, Hx Substance Abuse - Surgical History Surgery Procedure, Year, and Place: TUBES in bilat ears AT AGE 15. WISDOM TEETH. Gastric by pass 11/12/13. colycystectomy 08/12 Hx Anesthesia Reactions: No - Immunization History Date of Tetanus Vaccine: 2006 Date of Influenza Vaccine: 2015 Infectious Disease History: No Infectious Disease History: Denies: Hx Clostridium Difficile, Hx Hepatitis, Hx Human Immunodeficiency Virus (HIV), Hx of Known/Suspected MRSA, Hx Shingles, Hx Tuberculosis, Hx Known/ Suspected VRE, Hx Known/Suspected VRSA, History Other Infectious Disease, Traveled Outside the [place] in Last 30 Days - Family History Known Family History: Positive: Cardiac Disease - Cousin: of heart problems at 19 y/o, Hypertension, Diabetes, Other - CA, overweight/obesity - Social History Alcohol Use: Weekly Alcohol Amount: 4 BEERS X WEEK Hx Substance Use: No Substance Use Type: Reports: None Hx Tobacco Use: Yes Smoking Status (MU): Light Every Day Tobacco Smoker Type: Cigarettes Amount Used/How Often: 2 CIG/DAY Have You Smoked in the Last Year: Yes Review of Systems Negative: Fever, Chills Positive: Palpitations. Negative: Chest Pain Positive: Nausea. Negative: Vomiting Neurological: Other - POS: dizziness Positive: Headache All Other Systems Reviewed And Are Negative: Yes Physical Exam - Summary Physical Exam Summary: Appearance: Ill-appearing, moderate pain distress, Well-nourished Skin: Warm, color reflects adequate perfusion. Pt is diaphoretic. Head: Normal Head/Face inspection Eyes: Conjunctiva clear ENT: Normal ENT inspection Neck: Supple, no nodes, no JVD Respiratory: Lungs clear, Normal breath sounds, no respiratory distress Cardio: RRR, No murmur, pulses normal, brisk capillary refill Abdomen: soft, nontender Bowel sounds: present Musculoskeletal: Strength Intact/ ROM intact. No calf tenderness. No edema. Neuro: Alert, muscle tone normal, facial symmetry, speech normal, sensory/motor intact Psychological: Normal Triage Information Reviewed: Yes Vital Signs On Initial Exam: Initial Vitals Temp Pulse Resp BP Pulse Ox 98.5 F 85 20 130/78 75 03/14/17 09:38 03/14/17 09:38 03/14/17 09:38 03/14/17 09:38 03/14/17 09:38 Vital Signs Reviewed: Yes - [place] Coma Scale Coma Scale Total: 15 Diagnostics - Vital Signs Vital Signs Temp Pulse Resp BP Pulse Ox 03/14/17 09:38 98.5 F 85 20 130/78 75 - Laboratory Lab Results: Lab Results 03/14/17 03/14/17 03/14/17 Range/Units 09:55 09:55 09:55 WBC 7.2 (3.5-10.8) 10^3/ul RBC 4.51 (4.0-5.4) 10^6/ul Hgb 13.1 (12.0-16.0) g/dl Hct 39 (35-47) % MCV 87 (80-97) fL MCH 29 (27-31) pg MCHC 34 (31-36) g/dl RDW 14 (10.5-15) % Plt Count 214 (150-450) 10^3/ul MPV 9 (7.4-10.4) um3 Neut % (Auto) 65.9 (38-83) % Lymph % (Auto) 23.5 L (25-47) % [place] % (Auto) 8.2 (1-9) % Eos % (Auto) 1.4 (0-6) % Baso % (Auto) 1.0 (0-2) % Absolute Neuts (auto) 4.7 (1.5-7.7) 10^3/ul Absolute Lymphs (auto) 1.7 (1.0-4.8) 10^3/ul Absolute Monos (auto) 0.6 (0-0.8) 10^3/ul Absolute Eos (auto) 0.1 (0-0.6) 10^3/ul Absolute Basos (auto) 0.1 (0-0.2) 10^3/ul Absolute Nucleated RBC 0 10^3/ul Nucleated RBC % 0 INR (Anticoag Therapy) 0.96 (0.77-1.02) APTT 33.5 (26.0-36.3) seconds D-Dimer, Quantitative < 200 (Less Than 230) ng/mL Sodium 136 (133-145) mmol/L Potassium 3.8 (3.5-5.0) mmol/L Chloride 106 (101-111) mmol/L Carbon Dioxide 27 (22-32) mmol/L Anion Gap 3 (2-11) mmol/L BUN 10 (6-24) mg/dL Creatinine 0.74 (0.51-0.95) mg/dL Est GFR ( Amer) 121.1 (>60) Est GFR (Non-Af Amer) 94.1 (>60) BUN/Creatinine Ratio 13.5 (8-20) Glucose 90 (70-100) mg/dL Lactic Acid (0.5-2.0) mmol/L Calcium 8.9 (8.6-10.3) mg/dL Magnesium 1.9 (1.9-2.7) mg/dL Total Bilirubin 0.40 (0.2-1.0) mg/dL AST 23 (13-39) U/L ALT 25 (7-52) U/L Alkaline Phosphatase 49 (34-104) U/L Total Creatine Kinase 469 H (10-223) U/L Troponin I 0.00 (<0.04) ng/mL C-Reactive Protein < 1.00 (< 5.00) mg/L Total Protein 6.3 L (6.4-8.9) g/dL Albumin 3.6 (3.2-5.2) g/dL Globulin 2.7 (2-4) g/dL Albumin/Globulin Ratio 1.3 (1-3) TSH 1.07 (0.34-5.60) mcIU/mL Beta HCG, Quant < 0.60 mIU/mL Urine Color Urine Appearance Urine pH (5-9) Ur Specific [place] (1.010-1.030) Urine Protein (Negative) Urine Ketones (Negative) Urine Blood (Negative) Urine Nitrate (Negative) Urine Bilirubin (Negative) Urine Urobilinogen (Negative) Ur Leukocyte Esterase (Negative) Urine WBC (Auto) (Absent) Urine RBC (Auto) (Absent) Ur Squamous Epith Cells (Absent) Urine Bacteria (Absent) Urine Glucose (Negative) 03/14/17 03/14/17 Range/Units 09:55 11:22 WBC (3.5-10.8) 10^3/ul RBC (4.0-5.4) 10^6/ul Hgb (12.0-16.0) g/dl Hct (35-47) % MCV (80-97) fL MCH (27-31) pg MCHC (31-36) g/dl RDW (10.5-15) % Plt Count (150-450) 10^3/ul MPV (7.4-10.4) um3 Neut % (Auto) (38-83) % Lymph % (Auto) (25-47) % [place] % (Auto) (1-9) % Eos % (Auto) (0-6) % Baso % (Auto) (0-2) % Absolute Neuts (auto) (1.5-7.7) 10^3/ul Absolute Lymphs (auto) (1.0-4.8) 10^3/ul Absolute Monos (auto) (0-0.8) 10^3/ul Absolute Eos (auto) (0-0.6) 10^3/ul Absolute Basos (auto) (0-0.2) 10^3/ul Absolute Nucleated RBC 10^3/ul Nucleated RBC % INR (Anticoag Therapy) (0.77-1.02) APTT (26.0-36.3) seconds D-Dimer, Quantitative (Less Than 230) ng/mL Sodium (133-145) mmol/L Potassium (3.5-5.0) mmol/L Chloride (101-111) mmol/L Carbon Dioxide (22-32) mmol/L Anion Gap (2-11) mmol/L BUN (6-24) mg/dL Creatinine (0.51-0.95) mg/dL Est GFR ( Amer) (>60) Est GFR (Non-Af Amer) (>60) BUN/Creatinine Ratio (8-20) Glucose (70-100) mg/dL Lactic Acid 1.3 (0.5-2.0) mmol/L Calcium (8.6-10.3) mg/dL Magnesium (1.9-2.7) mg/dL Total Bilirubin (0.2-1.0) mg/dL AST (13-39) U/L ALT (7-52) U/L Alkaline Phosphatase (34-104) U/L Total Creatine Kinase (10-223) U/L Troponin I (<0.04) ng/mL C-Reactive Protein (< 5.00) mg/L Total Protein (6.4-8.9) g/dL Albumin (3.2-5.2) g/dL Globulin (2-4) g/dL Albumin/Globulin Ratio (1-3) TSH (0.34-5.60) mcIU/mL Beta HCG, Quant mIU/mL Urine Color Yellow Urine Appearance Clear Urine pH 8 (5-9) Ur Specific [place] 1.010 (1.010-1.030) Urine Protein Negative (Negative) Urine Ketones Negative (Negative) Urine Blood Negative (Negative) Urine Nitrate Negative (Negative) Urine Bilirubin Negative (Negative) Urine Urobilinogen Negative (Negative) Ur Leukocyte Esterase 1+ H (Negative) Urine WBC (Auto) Trace(0-5/hpf) (Absent) Urine RBC (Auto) Trace(0-2/hpf) (Absent) Ur Squamous Epith Cells Present H (Absent) Urine Bacteria 1+ H (Absent) Urine Glucose Negative (Negative) Result Diagrams: 03/14/17 09:55 03/14/17 09:55 Lab Statement: Any lab studies that have been ordered have been reviewed, and results considered in the medical decision making process. - Radiology Chest XR Xray Interpretation: No Acute Changes - IMPRESSION: No ative cardiopulmonary disease. Dr. Cisse has reviewed this radiology report. Radiology Interpretation Completed By: Radiologist - EKG 09:38 Cardiac Rate: NL EKG Rhythm: Sinus Rhythm - at [address] Segment: Non-Specific Ectopy: None EKG Interpretation: Nml AVIVCT. Nml QTc. Nml axis. 09:59 Cardiac Rate: NL EKG Rhythm: Sinus Rhythm - at [address] Segment: Non-Specific Ectopy: PVCs EKG Interpretation: Nml AVIVCT. Nml QTc. Nml axis. EKG Comparison: Other - compared to prior at 09:38, she now has PVCs. Re-Evaluation - Re-Evaluation First Eval Re-Evaluation Time: 09:57 Change: Worse Comment: PVCs and bigeminy noted on the monitor. Second Eval Re-Evaluation Time: 13:00 Change: Worse Comment: Pt is vomiting in the ED. Third Eval Re-Evaluation Time: 13:25 Change: Unchanged Comment: I discussed lab and XR results with the pt. Pt is still vomiting but would like to go home. Headache Course/Dx - Course Course Of Treatment: Pt medications reviewed this visit. Allergies noted. Chest XR is negative. First EKG shows NSR with non-specific ST changes and without ectopy. Second EKG shows NSR with PVCs and non-specific ST changes. In the ED course, the pt was given scopolamine patch [id number], morphine 4 mg x2 IV , Zofran 8 mg IV, Protonix 40 mg IV, Sertraline 200 mg PO, NS 1000 CC. Pt will be discharged to home with follow up from her PCP and typist. - Diagnoses Provider Diagnoses: Migraine headache, Palpitations Discharge - Discharge Plan Condition: Stable Disposition: HOME Patient Education Materials: Palpitations (ED), Migraine Headache (ED) Forms: *Work Release Referrals: Marcia Reyes, PIERCING SPECIALIST [Primary Care Provider] - Additional Instructions: Your CK level was elevated so be sure to hydrate. We captured PVC's and bigeminy on the monitor and 1 PVC on an EKG. You should follow up with cardiology for further evaluation of these. The rest of your labs were unremarkable. Hold off on working out until 03/18/17 to allow the CK level to come down. Follow up with Mai Reyes definitely. You were given a scopolamine patch which you may leave on for 72 hrs, morphine 4mg IV x 2, zofran 8 mg IV, protonix 40mg IV, sertraline 200mg po and a liter of NS. Retrun to the ER if you have any new or worsening symptoms. The documentation as recorded by the Mckay herrera Angela accurately reflects the service I personally performed and the decisions made by me, Britany Cisse MD.
== END 2017-03-14 13:48 | disposition home or self-care (01) ==
LOC: ED 09:28
DX: G43.909 Migraine, unspecified, not intractable, without status migrainosus (principal); R00.2 Palpitations; F17.210 Nicotine dependence, cigarettes, uncomplicated
CPT/HCPCS: 36415; 71045; 80053; 81003; 81015; 82550; 83605; 83735; 84443; 84484; 84702; 85025; 85379; 85610; 85730; 86140; 93005; 96374; 96375; 99283; A9270-GY; J2270; J2405

== ENCOUNTER → 2017-05-21 09:52 | Emergency (ER) | payer BC ==
[~2017-05-21 09:52] MED LIST: Azithromycin TAB* 250 MG PO ONE; Lidocaine 1% MPF* 2 ML VIAL INJ ONE; Lidocaine 2% VISCOUS* 15 ML UDC PO ONE; Ondansetron ODT TAB* 4 MG PO ONE; cefTRIAXone VIAL(*) 250 MG VIAL IM ONE
[2017-05-21 10:23] VITALS: BP 139/80
--- NOTE | 2017-05-21 10:33 | UC ---
Abdominal Pain Female HPI - HPI Summary HPI Summary: hurts to urinate, burning externally when she urinates - History of Current Complaint Chief Complaint: UCGU Stated Complaint: PERSONAL Time Seen by Provider: 05/21/17 10:15 Hx Obtained From: Patient Hx Last Menstrual Period: 05/15/17 ?: No Onset/Duration: Sudden Onset Timing: Constant Severity Initially: Moderate Severity Currently: Moderate Pain Intensity: 7 Pain Scale Used: 0-10 Numeric Radiates: No Radiates to: Back Character: Burning - with urination Aggravating Factor(s): Nothing Alleviating Factor(s): Nothing Associated Signs and Symptoms: Positive: Back Pain, Other: - external pain with urination Allergies/Adverse Reactions: Allergies Allergy/AdvReac Type Severity Reaction Status Date / Time hydrocodone Allergy Swelling Verified 05/21/17 11:03 Of Face,Lips,& Throat latex Allergy Rash Verified 05/21/17 11:03 wheat Allergy Hives Uncoded 05/21/17 10:14 PMH/Surg Hx/FS Hx/Imm Hx Previously Healthy: Yes Respiratory History: Asthma Psychological History: Anxiety Other History Of: Negative For: Anticoagulant Therapy - Surgical History Surgical History: Yes Surgery Procedure, Year, and Place: TUBES in bilat ears AT AGE 15. WISDOM TEETH. Gastric by pass 11/12/13. colycystectomy 08/12 - Family History Known Family History: Positive: Cardiac Disease - Cousin: of heart problems at 19 y/o, Hypertension, Diabetes, Other - CA, overweight/obesity - Social History Occupation: Employed Full-time Lives: With Family Alcohol Use: Weekly Alcohol Amount: 4 BEERS X WEEK Substance Use Type: None Smoking Status (MU): Light Every Day Tobacco Smoker Type: Cigarettes Amount Used/How Often: 2 CIG/DAY Have You Smoked in the Last Year: Yes When Did the Patient Quit Smoking/Using Tobacco: 03/2015 Household Exposure Type: Cigarettes - Immunization History Most Recent Influenza Vaccination: 2017 Most Recent Tetanus Shot: WITHIN 10 YRS Most Recent Pneumonia Vaccination: NONE Review of Systems Constitutional: Negative Skin: Negative Eyes: Negative ENT: Negative Respiratory: Negative Cardiovascular: Negative Gastrointestinal: Negative Genitourinary: Vaginal/Penile Discharge - did have some bleeding last night, Other - external buring with urination Motor: Negative Neurovascular: Negative Musculoskeletal: Arthralgia - low back pain Neurological: Negative Psychological: Negative Is Patient Immunocompromised?: No All Other Systems Reviewed And Are Negative: Yes Physical Exam Triage Information Reviewed: Yes Appearance: Well-Appearing, No Pain Distress, Well-Nourished Vital Signs: Initial Vital Signs Temp 98.1 F 05/21/17 10:16 Pulse 94 05/21/17 10:16 Resp 16 05/21/17 10:16 BP 139/80 05/21/17 10:16 Pulse Ox 100 05/21/17 10:16 Vital Signs Reviewed: Yes Eye Exam: Normal Eyes: Positive: Conjunctiva Clear ENT Exam: Normal ENT: Positive: Normal ENT inspection, Hearing grossly normal. Negative: Nasal congestion, Trismus, Muffled voice, Hoarse voice Neck exam: Normal Neck: Positive: Supple, Nontender, No Lymphadenopathy Respiratory Exam: Normal Respiratory: Positive: Chest non-tender, No respiratory distress, No accessory muscle use Cardiovascular Exam: Normal Cardiovascular: Positive: RRR, Pulses Normal, Brisk Capillary Refill Abdominal Exam: Normal Abdomen Description: Positive: Nontender, No Organomegaly, Soft. Negative: CVA Tenderness (R), CVA Tenderness (L), Distended, McBurney's Point Tenderness Bowel Sounds: Positive: Present Pelvic Exam: Positive: No Cerv. Motion Tender, Discharge, Other - erythema and tenderness from 4-8 o'clock posterior forchette, 2 mm laceration at 7:00 posterior forcette which is tender to touch, thick white rich vaginal discharge, no cervical injury and vaginal injury. Negative: Active Bleeding, Tender Adnexa Musculoskeletal Exam: Normal Musculoskeletal: Positive: Strength Intact, ROM Intact, No Edema Neurological Exam: Normal Neurological: Positive: Alert, Muscle Tone Normal Psychological Exam: Other Psychological: Positive: Other: - teary from time to time during the exam Skin: Positive: Other - injury as described Diagnostics - Laboratory Diagnostic Studies Completed/Ordered: ua +1 leuks - Radiology No standard instances Xray Interpretation: No Acute Changes - IUD appears in same location as 2016 ct scan Abd Pain Female Course/Dx - Course Course Of Treatment: Rocephin, zithromax, lidocaine jelly, plan to follow [facility] for further examination - Differential Dx/Diagnosis Provider Diagnoses: INjuries Posterior forchette Discharge - Sign-Out/Discharge Documenting (check all that apply): Discharge - Discharge Plan Condition: Stable Disposition: HOME Discharge Disposition Comment: follow at [facility] Patient Education Materials: Pelvic Pain in Women (ED) Referrals: Marcia Reyes THERAPEUTIC ASSISTANT [Primary Care Provider] - 2 Days - Billing Disposition and Condition Condition: STABLE Disposition: HOME
--- NOTE | 2017-05-21 11:52 | RAD ---
Indication: Abdominal pain and back pain for 2 days. The patient is concerned about movement of IUD. Comparison: November 03, 2015 CT. Technique: Supine and upright views of the abdomen. Report: Clear visualized lung bases. No radiographic evidence for free air. Unremarkable bowel gas pattern. LEFT upper quadrant surgical clips corresponding with history of gastric bypass. Gallbladder fossa level surgical clips. LEFT para midline pelvic IUD grossly unchanged in position compared with the November 03, 2015 CT. Unremarkable soft tissue contours. IMPRESSION: No acute abdominal pelvic pathologic process evident. LEFT para midline pelvic IUD grossly unchanged in position compared with the November 03, 2015 CT.
== END | disposition home or self-care (01) ==
LOC: UCEAST 09:52
DX: S39.94XA Unspecified injury of external genitals, initial encounter (principal); X58.XXXA Exposure to other specified factors, initial encounter; Y93.9 Activity, unspecified; Y92.9 Unspecified place or not applicable; R30.9 Painful micturition, unspecified; Z97.5 Presence of (intrauterine) contraceptive device; J45.909 Unspecified asthma, uncomplicated; F41.9 Anxiety disorder, unspecified; Z88.5 Allergy status to narcotic agent; Z91.040 Latex allergy status; Z87.891 Personal history of nicotine dependence
CPT/HCPCS: 74019; 81003; 87086; 99211; A9270-GY; G0463; J0696

== ENCOUNTER 2017-07-20 11:47 | Emergency (ER) | payer BC ==
[2017-07-20] MEDS ORDERED: Meclizine TAB* 12.5 MG PO ONE (11:57)
[2017-07-20] MEDS ORDERED: NS 0.9% 1000 ML* 1,000 ML IV ONE (11:57)
[2017-07-20] MEDS ORDERED: Ondansetron INJ* 2 MG/ML VIAL IV ONE (12:21)
[2017-07-20 12:40] LABS: ABS Basophils 0.1 10^3/ul (0-0.2); ABS Eosinophils 0.1 10^3/ul (0-0.6); ABS Lymphocytes 1.9 10^3/ul (1.0-4.8); ABS Monocytes 0.6 10^3/ul (0-0.8); ABS Neutrophils 4.8 10^3/ul (1.5-7.7); ABS Nucleated RBC 0 10^3/ul; Hematocrit 39 % (35-47); Hemoglobin 13.1 g/dl (12.0-16.0); Lymphocyte % 25.9 % (25-47); Mean Corpuscular HGB Conc 34 g/dl (31-36); Mean Corpuscular Hemoglobin 29 pg (27-31); Mean Corpuscular Volume 86 fL (80-97); Mean Platelet Volume 8.9 um3 (7.4-10.4); Nucleated Red Blood Cells % 0; Platelet Count 225 10^3/ul (150-450); Red Blood Count 4.52 10^6/ul (4.0-5.4); Red Cell Distribution Width 14 % (10.5-15); White Blood Count 7.4 10^3/ul (3.5-10.8)
[2017-07-20 13:01] LABS: EGFR Non-African American 87.3 (>60)
--- NOTE | 2017-07-20 14:02 | RAD ---
HISTORY: Headache COMPARISONS: March 18, 2013 TECHNIQUE: Multiple contiguous axial CT scans were obtained of the head without intravenous contrast. FINDINGS: HEMORRHAGE/INFARCT: There is no hemorrhage or acute infarct. MASSES/SHIFT: There is no mass or shift. EXTRA-AXIAL SPACES: There are no extra-axial fluid collections. SULCI AND VENTRICLES: The sulci and ventricles are normal in size and position for the patient's stated age. CEREBRUM: There are no focal parenchymal abnormalities. BRAINSTEM: There are no focal parenchymal abnormalities. CEREBELLUM: There are no focal parenchymal abnormalities. VESSELS: The vessels are grossly normal. PARANASAL SINUSES: The paranasal sinuses are clear. ORBITS: The orbits are unremarkable. BONES AND SOFT TISSUE: No bone or soft tissue abnormalities are noted. OTHER: None IMPRESSION: NO ACUTE INTRACRANIAL PATHOLOGY.
--- NOTE | 2017-07-20 14:06 | RAD ---
INDICATION: Dizziness COMPARISON: March 14, 2017 TECHNIQUE: An AP portable view obtained at 1330 hours is submitted. FINDINGS: Bones/Soft Tissues: There are no acute bony findings. Cardiomediastinal: The cardiomediastinal silhouette is normal. Lungs: There are no infiltrates. Pleura: There are no pleural effusions. Other: None IMPRESSION: NORMAL CHEST.
[2017-07-20] MEDS ORDERED: Metoclopramide IV* 5 MG/ML 2 ML VIAL IV ONE (14:30)
[2017-07-20] MEDS ORDERED: diPHENhydraMINE IV* 50 MG/ML 1 ml VIAL (BENADRYL) IV ONE (14:30)
[2017-07-20] MEDS ORDERED: Ketorolac INJ* 30 MG/ML 1 ML VIAL IV PUSH ONE (14:30)
[2017-07-20] MEDS ORDERED: Magnesium Oxide TAB* 400 MG PO ONE (14:53)
[2017-07-20 15:40] VITALS: BP 140/65
--- NOTE | 2017-07-20 16:13 | ED ---
Osiel Gee Stephanie, scribed for Jerome Chester MD on 07/20/17 at 1216 . Dizziness - HPI Summary HPI Summary: The pt is a 26 y/o F BIBA to the ED with c/o room-spinning dizziness that began at 09:30 today. Symptoms include diarrhea, CERVANTES, SOB, shaking, nausea, vomiting 3x and blurred vision. She denies CP. The pt states she was driving to work today when she began to feel dizzy and nauseous. She denies recent illness. She reports LOC at work in February for similar symptoms. - History Of Current Complaint Chief Complaint: EDDizziness Stated Complaint: DIZZINESS Time Seen by Provider: 07/20/17 11:52 Hx Obtained From: Patient Onset/Duration: Still Present, Suddenly Timing: Hours - 3 Severity Currently: Moderate Character: Room Spinning, Lightheaded, Dizzy Aggravating Factor(s): Nothing Alleviating Factor(s): Nothing Associated Signs And Symptoms: Positive: Nausea, Vomiting, Diarrhea, SOB, Visual Changes, Other: - CERVANTES, shaking - Allergies/Home Medications Allergies/Adverse Reactions: Allergies Allergy/AdvReac Type Severity Reaction Status Date / Time hydrocodone Allergy Swelling Verified 05/21/17 11:03 Of Face,Lips,& Throat latex Allergy Rash Verified 05/21/17 11:03 wheat Allergy Hives Uncoded 05/21/17 10:14 Home Medications: Home Medications Calcium Carbonate [Calcium] 1,500 mg PO BID 07/20/17 [History Confirmed 07/20/17 ] Cyanocobalamin TAB* [Vitamin B12 TAB*] 500 mcg PO DAILY 07/20/17 [History Confirmed 07/20/17] Topiramate TAB(*) [Topamax 25 MG tab] 25 mg PO BEDTIME 07/20/17 [History Confirmed 07/20/17] PMH/Surg Hx/FS Hx/Imm Hx Endocrine/Hematology History: Denies: Hx Anticoagulant Therapy, Hx Diabetes, Hx Thyroid Disease Cardiovascular History: Reports: Other Cardiovascular Problems/Disorders - arrythmia May 2016 Denies: Hx Congestive Heart Failure, Hx Hypertension, Hx Pacemaker/ICD Respiratory History: Reports: Hx Asthma Denies: Hx Chronic Obstructive Pulmonary Disease (COPD) GI History: Reports: Hx Gastroesophageal Reflux Disease, Hx Ulcer, Other GI Disorders - Momo en Y gastric bypass 2013 History: Reports: Hx Kidney Infection, Other Problems/Disorders - ovarian cysts Denies: Hx Renal Disease Sensory History: Reports: Hx Cataracts, Hx Contacts or Glasses - CONTACTS Denies: Hx Hearing Aid Opthamlomology History: Reports: Hx Cataracts, Hx Contacts or Glasses - CONTACTS Neurological History: Reports: Hx Headaches, Hx Migraine Denies: Hx Dementia, Hx Seizures Psychiatric History: Reports: Hx Anxiety, Hx Depression Denies: Hx Panic Disorder, Hx Substance Abuse - Surgical History Surgery Procedure, Year, and Place: TUBES in bilat ears AT AGE 15. WISDOM TEETH. Gastric by pass 11/12/13. colycystectomy 08/12 Hx Anesthesia Reactions: No - Immunization History Date of Tetanus Vaccine: 2006 Date of Influenza Vaccine: 2015 Immunizations Up to Date: Yes Infectious Disease History: No Infectious Disease History: Denies: Hx Clostridium Difficile, Hx Hepatitis, Hx Human Immunodeficiency Virus (HIV), Hx of Known/Suspected MRSA, Hx Shingles, Hx Tuberculosis, Hx Known/ Suspected VRE, Hx Known/Suspected VRSA, History Other Infectious Disease, Traveled Outside the [place] in Last 30 Days - Family History Known Family History: Positive: Cardiac Disease - Cousin: of heart problems at 19 y/o, Hypertension, Diabetes, Other - CA, overweight/obesity - Social History Occupation: Employed Full-time Lives: Alone Alcohol Use: Weekly Alcohol Amount: 4 BEERS X WEEK Hx Substance Use: No Substance Use Type: Reports: None Hx Tobacco Use: Yes Smoking Status (MU): Light Every Day Tobacco Smoker Type: Cigarettes Amount Used/How Often: 2 CIG/DAY Have You Smoked in the Last Year: Yes Review of Systems Negative: Fever Positive: Blurred Vision Positive: Shortness Of Breath Positive: Vomiting, Diarrhea, Nausea Neurological: Other - room-spinning dizziness, shaking Positive: Headache All Other Systems Reviewed And Are Negative: Yes Physical Exam - Summary Physical Exam Summary: VITAL SIGNS: Reviewed. GENERAL: Patient is a well-developed and nourished FEMALE who is lying comfortable in the stretcher. Patient is not in any acute respiratory distress. HEAD AND FACE: No signs of trauma. No ecchymosis, hematomas or skull depressions. No sinus tenderness. EYES: PERRLA, EOMI x 2, No injected conjunctiva, no nystagmus. EARS: Hearing grossly intact. Ear canals and tympanic membranes are within normal limits. MOUTH: Oropharynx within normal limits. NECK: Supple, trachea is midline, no adenopathy, no JVD, no carotid bruit, no c- spine tenderness, neck with full ROM. CHEST: Symmetric, no tenderness at palpation LUNGS: Clear to auscultation bilaterally. No wheezing or crackles. CVS: Regular rate and rhythm, S1 and S2 present, no murmurs or gallops appreciated. ABDOMEN: Soft, non-tender. No signs of distention. No rebound no guarding, and no masses palpated. Bowel sounds are normal. EXTREMITIES: FROM in all major joints, no edema, no cyanosis or clubbing. NEURO: Alert and oriented x 3. No acute neurological deficits. Speech is normal and follows commands. SKIN: Dry and warm Triage Information Reviewed: Yes Vital Signs On Initial Exam: Initial Vitals Temp Pulse Resp BP Pulse Ox 98.4 F 60 20 135/83 100 07/20/17 11:52 07/20/17 11:52 07/20/17 11:52 07/20/17 11:52 07/20/17 11:52 Vital Signs Reviewed: Yes Diagnostics - Vital Signs Vital Signs Temp Pulse Resp BP Pulse Ox 07/20/17 11:52 98.4 F 60 20 135/83 100 - Laboratory Lab Results: Lab Results 07/20/17 07/20/17 07/20/17 Range/Units 12:26 12:26 12:26 WBC 7.4 (3.5-10.8) 10^3/ul RBC 4.52 (4.0-5.4) 10^6/ul Hgb 13.1 (12.0-16.0) g/dl Hct 39 (35-47) % MCV 86 (80-97) fL MCH 29 (27-31) pg MCHC 34 (31-36) g/dl RDW 14 (10.5-15) % Plt Count 225 (150-450) 10^3/ul MPV 8.9 (7.4-10.4) um3 Neut % (Auto) 64.4 (38-83) % Lymph % (Auto) 25.9 (25-47) % Aurora % (Auto) 7.6 H (0-7) % Eos % (Auto) 1.0 (0-6) % Baso % (Auto) 1.1 (0-2) % Absolute Neuts (auto) 4.8 (1.5-7.7) 10^3/ul Absolute Lymphs (auto) 1.9 (1.0-4.8) 10^3/ul Absolute Monos (auto) 0.6 (0-0.8) 10^3/ul Absolute Eos (auto) 0.1 (0-0.6) 10^3/ul Absolute Basos (auto) 0.1 (0-0.2) 10^3/ul Absolute Nucleated RBC 0 10^3/ul Nucleated RBC % 0 Sodium 138 L (139-145) mmol/L Potassium 3.9 (3.5-5.0) mmol/L Chloride 107 (101-111) mmol/L Carbon Dioxide 23 (22-32) mmol/L Anion Gap 8 (2-11) mmol/L BUN 11 (6-24) mg/dL Creatinine 0.79 (0.51-0.95) mg/dL Est GFR ( Amer) 112.3 (>60) Est GFR (Non-Af Amer) 87.3 (>60) BUN/Creatinine Ratio 13.9 (8-20) Glucose 92 (70-100) mg/dL Lactic Acid 1.3 (0.5-2.0) mmol/L Calcium 9.3 (8.6-10.3) mg/dL Magnesium 1.8 L (1.9-2.7) mg/dL Total Bilirubin 0.40 (0.2-1.0) mg/dL AST 34 (13-39) U/L ALT 36 (7-52) U/L Alkaline Phosphatase 55 (34-104) U/L Total Creatine Kinase 117 (10-223) U/L Troponin I 0.00 (<0.04) ng/mL C-Reactive Protein < 1.00 (< 5.00) mg/L Total Protein 6.5 (6.4-8.9) g/dL Albumin 3.8 (3.2-5.2) g/dL Globulin 2.7 (2-4) g/dL Albumin/Globulin Ratio 1.4 (1-3) TSH 0.99 (0.34-5.60) mcIU/mL Beta HCG, Quant < 0.60 mIU/mL Result Diagrams: 07/20/17 12:26 07/20/17 12:26 Lab Statement: Any lab studies that have been ordered have been reviewed, and results considered in the medical decision making process. - Radiology CXR Xray Interpretation: No Acute Changes Radiology Interpretation Completed By: Radiologist - Normal chest. ED physician has reviewed this report. - CT Brain CT Interpretation: No Acute Changes CT Interpretation Completed By: Radiologist - NO ACUTE INTRACRANIAL PATHOLOGY. ED physician has reviewed this report. - EKG 12:00 Cardiac Rate: NL EKG Rhythm: Sinus Rhythm - 81 BPM Ectopy: PVCs EKG Interpretation: No ST elevations, multiple PVCs with bigeminy Dizzy Course/Dx - Course Assessment/Plan: This patient is a 26-year-old female who presents to the emergency department with a chief complaint of dizziness. She reports that she started having the symptoms since this morning and she reports that everything is spinning around her. She has history of vertigo. She also reports a headache, denies any recent, cough, denies any recent sinusitis or allergies. She also reports that she has history or Bigeminy. Initially the patient was placed in the air sampling and monitoring, we obtained IV access and she was given ibuprofen fluids, suffering for nausea and meclizine for the dizziness. Blood work without any significant abnormality. Reassessment of the patient at 1:47 PM: The patient reports that he she is feeling is slightly better. She doesnt have any blurred vision and the dizziness have improved. She continues to denies any chest pain or shortness of breath. Blood test results without any significant abnormality except for platelets and 1.8 for which the patient was given magnesium by mouth. Head CT impression: No acute intracranial pathology. Chest x-ray impression: Normal chest x-ray. The patient reports that she is having a headache before the patient was given IV fluids, she was given Reglan for nausea and headache, Benadryl and Toradol. After these medications were given the patients symptoms have resolved. She reports that her headache is improved and her dizziness also improved. Therefore this time the patient will be discharged home with follow-up with primary care physician. Patient will be given a prescription for Antivert. I discussed all the findings and test results with the patient. Patient was instructed to return to the emergency room immediately if any of the symptoms return or worsens. Plan of care was discussed with the patient and understands and agrees. All questions were answered at patient satisfaction. There were no further complaints or concerns. Lung exam before discharge: CTA B/L. Good air exchange. No wheezing or crackles heard. CVS: S1 and S2 present. No murmurs appreciated. Patient is alert and oriented x 3. Patient is hemodynamically stable. Patient will be discharged home with follow up PCP in the next 2-3 days - Diagnoses Differential Diagnosis/HQI/PQRI: Dysrhythmia, Labyrinthitis, Meniere's Disease, Vasovagal Reaction, Other - vertigo Provider Diagnoses: Vertigo, Bigeminal rhythm, Headache Discharge - Sign-Out/Discharge Documenting (check all that apply): Discharge/Admit/Transfer - Discharge - Discharge Plan Condition: Stable Disposition: HOME Prescriptions: Meclizine TAB* [Antivert 12.5 TAB*] 25 mg PO TID PRN #30 tab PRN Reason: Vertigo Patient Education Materials: Vertigo (ED) Referrals: Marcia Reyes, CHEMIST HELPER [Primary Care Provider] - 3 Days Additional Instructions: Return to the ED for any new or worsening symptoms. The documentation as recorded by the Osiel herrera Stephanie accurately reflects the service I personally performed and the decisions made by , Jerome Chester MD.
== END 2017-07-20 15:39 | disposition home or self-care (01) ==
LOC: ED 11:47
DX: R42 Dizziness and giddiness (principal); R00.8 Other abnormalities of heart beat; R51 Headache; F17.210 Nicotine dependence, cigarettes, uncomplicated; K21.9 Gastro-esophageal reflux disease without esophagitis
CPT/HCPCS: 36415; 70450; 71045; 80053; 82550; 83605; 83735; 84443; 84484; 84702; 85025; 86140; 93005; 96360; 96374; 96375; 99283; A9270-GY; J1200; J1885; J2405; J2765

== ENCOUNTER 2017-11-14 08:05 | Emergency (ER) | payer BC ==
[2017-11-14] MEDS ORDERED: Metoclopramide IV* 5 MG/ML 2 ML VIAL IV ONE (08:21)
[2017-11-14] MEDS ORDERED: diPHENhydraMINE IV* 50 MG/ML 1 ml VIAL (BENADRYL) IV ONE (08:21)
[2017-11-14] MEDS ORDERED: Ketorolac INJ* 30 MG/ML 1 ML VIAL IV ONE (08:21)
--- NOTE | 2017-11-14 08:29 | ED ---
Headache - HPI Summary HPI Summary: Patient is a 27 y/o F w/ c/o migraine CERVANTES onsetting 0500 today. She reports Hx of migraines. Present Sx are similar to previous migraine episodes. Patient reports that she had difficulty getting out of bed yesterday morning and that she also had an upper GI scope yesterday. This morning, she woke up with migraine, N/V. On triage, it is reported that patient took medication for nausea and then experienced a 103 F, measured at home. On vitals, temperature is 97 F. In the room, patient reports that she later vomited up medication. She notes that light and sound aggravates CERVANTES. She described CERVANTES as a pressure and sharp pain. On triage, pain is rated 9/10. In the room, she reports a vicodin allergy. Home medications and allergies reviewed. - History Of Current Complaint Chief Complaint: EDGeneral Stated Complaint: FEVER FOLLOWING PROCEDURE Time Seen by Provider: 11/14/17 08:17 Hx Obtained From: Patient Hx Last Menstrual Period: 05/15/17 Onset/Duration: Started hours ago - onset total 0500, Still Present Currently Pain Is: Current Pain Scale(0-10)= - 9/10, Severe - 9/10 Timing: Constant, Hours - since 0500 today Character: Sharp, Pressure, Migraine Aggravating Factor: Bright Lights, Other - sounds Allevating Factors: Nothing Associated Signs And Symptoms: Nausea, Vomiting, Fever - reports 103 F at home, vitals is 97 F - Allergies/Home Medications Allergies/Adverse Reactions: Allergies Allergy/AdvReac Type Severity Reaction Status Date / Time hydrocodone Allergy Swelling Verified 05/21/17 11:03 Of Face,Lips,& Throat latex Allergy Rash Verified 05/21/17 11:03 wheat Allergy Hives Uncoded 05/21/17 10:14 PMH/Surg Hx/FS Hx/Imm Hx Endocrine/Hematology History: Denies: Hx Anticoagulant Therapy, Hx Diabetes, Hx Thyroid Disease Cardiovascular History: Reports: Other Cardiovascular Problems/Disorders - arrythmia May 2016 Denies: Hx Congestive Heart Failure, Hx Hypertension, Hx Pacemaker/ICD Respiratory History: Reports: Hx Asthma Denies: Hx Chronic Obstructive Pulmonary Disease (COPD) GI History: Reports: Hx Gastroesophageal Reflux Disease, Hx Ulcer, Other GI Disorders - Momo en Y gastric bypass 2013 History: Reports: Hx Kidney Infection, Other Problems/Disorders - ovarian cysts Denies: Hx Renal Disease Sensory History: Reports: Hx Cataracts, Hx Contacts or Glasses - CONTACTS Denies: Hx Hearing Aid Opthamlomology History: Reports: Hx Cataracts, Hx Contacts or Glasses - CONTACTS Neurological History: Reports: Hx Headaches, Hx Migraine Denies: Hx Dementia, Hx Seizures Psychiatric History: Reports: Hx Anxiety, Hx Depression Denies: Hx Panic Disorder, Hx Substance Abuse - Surgical History Surgery Procedure, Year, and Place: TUBES in bilat ears AT AGE 15. WISDOM TEETH. Gastric by pass 11/12/13. colycystectomy 08/12 Hx Anesthesia Reactions: No - Immunization History Date of Tetanus Vaccine: 2006 Date of Influenza Vaccine: 2015 Infectious Disease History: No Infectious Disease History: Denies: Hx Clostridium Difficile, Hx Hepatitis, Hx Human Immunodeficiency Virus (HIV), Hx of Known/Suspected MRSA, Hx Shingles, Hx Tuberculosis, Hx Known/ Suspected VRE, Hx Known/Suspected VRSA, History Other Infectious Disease, Traveled Outside the [place] in Last 30 Days - Family History Known Family History: Positive: Cardiac Disease - Cousin: of heart problems at 19 y/o, Hypertension, Diabetes, Other - CA, overweight/obesity - Social History Alcohol Use: Weekly Alcohol Amount: 4 BEERS X WEEK Hx Substance Use: No Substance Use Type: Reports: None Hx Tobacco Use: Yes Smoking Status (MU): Light Every Day Tobacco Smoker Type: Cigarettes Amount Used/How Often: 2 CIG/DAY Have You Smoked in the Last Year: Yes Review of Systems Positive: Fever - reports 103 F at home, vitals show 97 F Positive: Photophobia Positive: Vomiting, Nausea Positive: Headache - sounds and light aggravate CERVANTES All Other Systems Reviewed And Are Negative: Yes Physical Exam - Summary Physical Exam Summary: VITAL SIGNS: Reviewed. GENERAL: Patient is a well-developed and nourished female who is lying comfortable in the stretcher. Patient is not in any acute respiratory distress. HEAD AND FACE: No signs of trauma. No ecchymosis, hematomas or skull depressions. No sinus tenderness. EYES: PERRLA, EOMI x 2, No injected conjunctiva, no nystagmus. EARS: Hearing grossly intact. Ear canals and tympanic membranes are within normal limits. MOUTH: Oropharynx within normal limits. NECK: Supple, trachea is midline, no adenopathy, no JVD, no carotid bruit, no c- spine tenderness, neck with full ROM. No meningeal signs, no Kernig's or brudzinskis signs. CHEST: Symmetric, no tenderness at palpation LUNGS: Clear to auscultation bilaterally. No wheezing or crackles. CVS: Regular rate and rhythm, S1 and S2 present, no murmurs or gallops appreciated. ABDOMEN: Soft, non-tender. No signs of distention. No rebound no guarding, and no masses palpated. Bowel sounds are normal. EXTREMITIES: FROM in all major joints, no edema, no cyanosis or clubbing. NEURO: Alert and oriented x 3. No acute neurological deficits. Speech is normal and follows commands. No meningeal signs. SKIN: Dry and warm GCS: 15 Triage Information Reviewed: Yes Vital Signs On Initial Exam: Initial Vitals Temp Pulse Resp BP Pulse Ox 97 F 79 16 147/86 98 11/14/17 08:05 11/14/17 08:05 11/14/17 08:05 11/14/17 08:05 11/14/17 08:05 Vital Signs Reviewed: Yes Diagnostics - Vital Signs Vital Signs Temp Pulse Resp BP Pulse Ox 11/14/17 08:05 97 F 79 16 147/86 98 - Laboratory Result Diagrams: 11/14/17 08:51 11/14/17 08:51 Lab Statement: Any lab studies that have been ordered have been reviewed, and results considered in the medical decision making process. Re-Evaluation - Re-Evaluation First Eval Re-Evaluation Time: 10:28 Change: Improved Comment: Nausea is better, but CERVANTES is reported to be unchanged. Patient is in and out of bigeminy and trigeminy, of which she has a Hx. Patient will be given Tylenol. Second Eval Re-Evaluation Time: 11:07 Change: Improved Comment: Patient states that she is feeling better. The patient reports that the pain is 2-3 out of 10. Patient declined any head CT or lumbar puncture. Lung exam before discharge: CTA B/L. Good air exchange. No wheezing or crackles heard. CVS: S1 and S2 present. No murmurs appreciated. Patient is alert and oriented x 3. Patient is hemodynamically stable. Patient will be discharged home with follow up PCP and neurologist in the next 2-3 days Headache Course/Dx - Course Assessment/Plan: This patient is a 27-year-old female presented to the emergency department with a chief complaint of having a migraine headache. She reports that yesterday she had an endoscopy and she did not have a good physician yesterday afterwards. This morning she developed the headache with photophobia and unable to tolerate noise which are similar symptoms when she has a migraine headache. Initially in the emergency department the patient was given IV fluids, Toradol, Reglan, Benadryl. She also requested and a scopolamine patch which is elevated effective for her migraine headaches. Blood work without any significant abnormality except for carbon monoxide of 4.5 , and total protein of 6. Urinalysis is negative for UTI. The patient also was given Tylenol and Topamax and her symptoms have significantly improved. The patient reports that the pain is 2-3 out of 10. Patient declined any head CT or lumbar puncture. I discussed all the findings and test results with the patient. Patient was instructed to return to the emergency room immediately if any of the symptoms return or worsens. Plan of care was discussed with the patient and understands and agrees. All questions were answered at patient satisfaction. There were no further complaints or concerns. Lung exam before discharge: CTA B/L. Good air exchange. No wheezing or crackles heard. CVS: S1 and S2 present. No murmurs appreciated. Patient is alert and oriented x 3. Patient is hemodynamically stable. Patient will be discharged home with follow up PCP and neurologist in the next 2-3 days - Diagnoses Differential Diagnosis/HQI/PQRI: Migraine, Sinus Headache, Tension Headache Provider Diagnoses: Migraine headache Discharge - Sign-Out/Discharge Documenting (check all that apply): Patient Departure - discharge - Discharge Plan Condition: Stable Disposition: HOME Patient Education Materials: Acute Headache (ED) Forms: *Work Release Referrals: Marcia Reyes NP [Primary Care Provider] - 3 Days Noemí Arzola MD [Medical Doctor] - 3 Days Additional Instructions: FOLLOW UP WITH PRIMARY CARE PHYSICIAN AND NEUROLOGIST WITHIN 3 DAYS. RETURN TO ED FOR ANY NEW OR WORSENING SYMPTOMS - Billing Disposition and Condition Condition: STABLE Disposition: Home - Attestation Statements Document Initiated by Scribe: Yes Documenting Scribe: Alli Wing Provider For Whom Scribe is Documenting (Include Credential): Jerome Chester MD Scribe Attestation: Alli Gee scribed for Jerome Chester MD on 11/14/17 at 1840. Scribe Documentation Reviewed: Yes Provider Attestation: The documentation as recorded by the scribeAlli accurately reflects the service I personally performed and the decisions made by me, Jerome Chester MD
[2017-11-14] MEDS: NS 0.9% 1000 ML* 2,000 ML IV ONE (08:37)
[2017-11-14] MEDS ORDERED: Scopolamine 1.5 mg* PATCH TRANSDERM SCH (09:00)
[2017-11-14 09:05] LABS: ABS Basophils 0 10^3/ul (0-0.2); ABS Eosinophils 0.1 10^3/ul (0-0.6); ABS Lymphocytes 1.2 10^3/ul (1.0-4.8); ABS Monocytes 0.4 10^3/ul (0-0.8); ABS Neutrophils 3.3 10^3/ul (1.5-7.7); ABS Nucleated RBC 0 10^3/ul; Eosinophil % 1.2 % (0-6); Hematocrit 38 % (35-47); Hemoglobin 12.9 g/dl (12.0-16.0); Lymphocyte % 23.5 % (25-47); Mean Corpuscular HGB Conc 34 g/dl (31-36); Mean Corpuscular Hemoglobin 28 pg (27-31); Mean Corpuscular Volume 84 fL (80-97); Mean Platelet Volume 8.9 um3 (7.4-10.4); Nucleated Red Blood Cells % 0; Platelet Count 202 10^3/ul (150-450); Red Blood Count 4.54 10^6/ul (4.00-5.40); Red Cell Distribution Width 15 % (10.5-15); White Blood Count 4.9 10^3/ul (3.5-10.8)
[2017-11-14 09:25] LABS: EGFR Non-African American 87.9 (>60)
[2017-11-14 09:29] LABS: Urine Appearance Clear; Urine Blood 1+ (Negative); Urine Color Straw; Urine Ketones Negative (Negative); Urine Protein Negative (Negative); Urine Red Blood Cell Trace(0-2/hpf) (Absent); Urine Specific Gravity 1.003 (1.010-1.030); Urine Urobilinogen Negative (Negative); Urine White Blood Cell Absent (Absent)
[2017-11-14] MEDS ORDERED: Acetaminophen TAB* 325 MG ONE (10:33)
[2017-11-14] MEDS ORDERED: Acetaminophen TAB* 325 MG PO ONE (10:34)
[2017-11-14] MEDS ORDERED: Topiramate TAB(*) 25 MG PO ONE (11:10)
[2017-11-14 11:29] VITALS: BP 106/51
== END 2017-11-14 11:28 | disposition home or self-care (01) ==
LOC: ED 08:05
DX: G43.909 Migraine, unspecified, not intractable, without status migrainosus (principal); F17.210 Nicotine dependence, cigarettes, uncomplicated; Z88.6 Allergy status to analgesic agent
CPT/HCPCS: 36415; 80053; 81003; 81015; 82375; 85025; 85652; 87086; 96361; 96374; 96375; 99283; A9270-GY; J1200; J1885

== ENCOUNTER 2017-12-02 05:06 | Emergency (ER) | payer BC ==
[2017-12-02] MEDS ORDERED: Morphine INJ* 4 MG/ML 1 ML SYRINGE (NEW SYRINGE VERSION) IV PRN (05:22)
[2017-12-02] MEDS ORDERED: Morphine INJ* 2 MG/ML 1 ML SYRINGE (TWO MG - NEW SYRINGE VERSION) IV ONE (05:22)
[2017-12-02] MEDS ORDERED: NS 0.9% 1000 ML* 3,000 ML IV ONE (05:22)
--- NOTE | 2017-12-02 05:42 | ED ---
GI/ HPI - HPI Summary HPI Summary: The patient is a 27 y/o F presenting to [facility] with a chief complaint of constant diarrhea and left-sided abd pain for that last three months with recently sudden worsening in the last five days. Starting in August 2017, she started having episodes of severe diarrhea, so her PCP recommended that she get a scope done of her GI tract, which had normal results. After the scope, her BM seemed to be normal, but then in the last few days she has been having constant nausea and abdominal pain that occasionally radiates to her back, with 2-3 episodes of watery and oily stool an hour. She states that it happens so quickly she becomes incontinent because she isn't aware of her immediate need to go to the bathroom soon enough. She also is unable to keep her food down as she is continuously vomiting everything up, so he has a decreased appetite as well. She had bariatric surgery 4 years ago, but has never had any significant issues like this before. The pain is currently rated 8/10 in severity. - History of Current Complaint Chief Complaint: EDAbdPain Time Seen by Provider: 12/02/17 05:10 Stated Complaint: ABD PAIN Hx Obtained From: Patient Hx Last Menstrual Period: 05/15/17 Onset/Duration: Started Days Ago - five, Still Present Timing: Lasting Days Severity: Severe Current Severity: Severe Pain Intensity: 8 Location of Pain: LUQ, LLQ Pain Characteristics: Cramping Pain Radiates to: Back Associated Signs and Symptoms: Positive: Back Pain, Nausea, Vomiting, Diarrhea Aggravating Factor(s): Food Alleviating Factor(s): Nothing - Additional Pertinent History Primary Care Physician: ABDULLAHI - Allergy/Home Medications Allergies/Adverse Reactions: Allergies Allergy/AdvReac Type Severity Reaction Status Date / Time hydrocodone Allergy Swelling Verified 12/02/17 05:12 Of Face,Lips,& Throat latex Allergy Rash Verified 12/02/17 05:12 wheat Allergy Hives Uncoded 12/02/17 05:12 PMH/Surg Hx/FS Hx/Imm Hx Endocrine/Hematology History: Denies: Hx Anticoagulant Therapy, Hx Diabetes, Hx Thyroid Disease Cardiovascular History: Reports: Other Cardiovascular Problems/Disorders - arrythmia May 2016 Denies: Hx Congestive Heart Failure, Hx Hypertension, Hx Pacemaker/ICD Respiratory History: Reports: Hx Asthma Denies: Hx Chronic Obstructive Pulmonary Disease (COPD) GI History: Reports: Hx Gastroesophageal Reflux Disease, Hx Ulcer, Other GI Disorders - Momo en Y gastric bypass 2013 History: Reports: Hx Kidney Infection, Other Problems/Disorders - ovarian cysts Denies: Hx Renal Disease Sensory History: Reports: Hx Cataracts, Hx Contacts or Glasses - CONTACTS Denies: Hx Hearing Aid Opthamlomology History: Reports: Hx Cataracts, Hx Contacts or Glasses - CONTACTS Neurological History: Reports: Hx Headaches, Hx Migraine Denies: Hx Dementia, Hx Seizures Psychiatric History: Reports: Hx Anxiety, Hx Depression Denies: Hx Panic Disorder, Hx Substance Abuse - Surgical History Surgery Procedure, Year, and Place: TUBES in bilat ears AT AGE 15. WISDOM TEETH. Gastric by pass 11/12/13. colycystectomy 08/12 Hx Anesthesia Reactions: No - Immunization History Date of Tetanus Vaccine: 2006 Date of Influenza Vaccine: 2015 Infectious Disease History: No Infectious Disease History: Denies: Hx Clostridium Difficile, Hx Hepatitis, Hx Human Immunodeficiency Virus (HIV), Hx of Known/Suspected MRSA, Hx Shingles, Hx Tuberculosis, Hx Known/ Suspected VRE, Hx Known/Suspected VRSA, History Other Infectious Disease, Traveled Outside the [place] in Last 30 Days - Family History Known Family History: Positive: Cardiac Disease - Cousin: of heart problems at 19 y/o, Hypertension, Diabetes, Other - CA, overweight/obesity - Social History Alcohol Use: Weekly Alcohol Amount: 4 BEERS X WEEK Hx Substance Use: No Substance Use Type: Reports: None Hx Tobacco Use: Yes Smoking Status (MU): Light Every Day Tobacco Smoker Type: Cigarettes Amount Used/How Often: 2 CIG/DAY Have You Smoked in the Last Year: Yes Review of Systems Positive: Abdominal Pain, Vomiting, Diarrhea, Nausea, Other - painful and incontinence with BM, decreased appetite Neurological: Other - dizzy All Other Systems Reviewed And Are Negative: Yes Physical Exam - Summary Physical Exam Summary: Appearance: Well-appearing, Well-nourished, lying in bed comfortably Skin: Warm, dry, no obvious rash Eyes: sclera anicteric, no conjunctival pallor ENT: mucous membranes moist, pharynx appears normal Neck: Supple, nontender Respiratory: Clear to auscultation, no signs of respiratory distress Cardiovascular: Normal S1, S2. No murmurs. Normal distal pulses in tibial and radial bilaterally. Abdomen: Soft, Left-sided abd tenderness with some guarding and rebound, normal active bowel sounds present Musculoskeletal: Normal, Strength/ROM Intact Neurological: A&Ox3, awake and alert, mentation is normal, speech is fluent and appropriate Psychiatric: affect is normal, does not appear anxious or depressed Triage Information Reviewed: Yes Vital Signs On Initial Exam: Initial Vitals Temp Pulse Resp BP Pulse Ox 97.9 F 89 16 144/73 100 12/02/17 05:08 12/02/17 05:08 12/02/17 05:08 12/02/17 05:08 12/02/17 05:08 Vital Signs Reviewed: Yes Diagnostics - Vital Signs Vital Signs Temp Pulse Resp BP Pulse Ox 12/02/17 05:08 97.9 F 89 16 144/73 100 - Laboratory Result Diagrams: 12/02/17 06:00 12/02/17 06:00 Lab Statement: Any lab studies that have been ordered have been reviewed, and results considered in the medical decision making process. GIGU Course/Dx - Diagnoses Provider Diagnoses: Diarrhea, Postoperative generalized abdominal pain Discharge - Sign-Out/Discharge Documenting (check all that apply): Sign-Out Patient Signing out patient TO: Tony Riggs - Patient is a sign-out to Dr. Riggs at shift change, pending Abd/Pel CT results and disposition. - Discharge Plan Condition: Stable Disposition: HOME Prescriptions: Diphenoxylat/Atrop 2.5-0.025M* [Lomotil TAB*] 1 tab PO QID #30 tab MDD 4 Lactobacillus Acidophilus* 1 cap PO BID #30 cap Referrals: Jose F Cole MD [Medical Doctor] - Marcia Reyes NP [Primary Care Provider] - - Attestation Statements Document Initiated by Scribe: Yes Documenting Scribe: Gemini Carrion Provider For Whom Scribe is Documenting (Include Credential): Dr. Praful Velez MD Scribe Attestation: Gemini Gee scribed for Dr. Praful Velez MD on 12/02/17 at 0742.
[2017-12-02] MEDS ORDERED: Morphine INJ* 4 MG/ML 1 ML SYRINGE (NEW SYRINGE VERSION) ONE ×2 (05:44→06:12)
[2017-12-02] MEDS ORDERED: Ondansetron INJ* 2 MG/ML VIAL IV ONE (05:51)
[2017-12-02] MEDS ORDERED: Scopolamine 1.5 mg* PATCH TRANSDERM SCH (06:00)
[2017-12-02] MEDS ORDERED: Morphine VIAL* 4 MG/ML VIAL (1 ml vial) IV ONE (06:10)
[2017-12-02 06:19] LABS: ABS Basophils 0 10^3/ul (0-0.2); ABS Eosinophils 0.1 10^3/ul (0-0.6); ABS Monocytes 0.9 10^3/ul (0-0.8); ABS Neutrophils 4.5 10^3/ul (1.5-7.7); ABS Nucleated RBC 0 10^3/ul; Eosinophil % 1.2 % (0-6); Hematocrit 44 % (35-47); Mean Corpuscular HGB Conc 34 g/dl (31-36); Mean Corpuscular Hemoglobin 28 pg (27-31); Mean Corpuscular Volume 84 fL (80-97); Mean Platelet Volume 8.7 um3 (7.4-10.4); Nucleated Red Blood Cells % 0.1; Platelet Count 224 10^3/ul (150-450); Red Cell Distribution Width 14 % (10.5-15); White Blood Count 6.4 10^3/ul (3.5-10.8)
[2017-12-02] MEDS ORDERED: Iohexol 300* (CONTRAST) 10 ML SDV IV ONE (07:02)
--- NOTE | 2017-12-02 07:29 | RAD ---
INDICATION: LEFT side abdominal pain, nausea, vomiting, diarrhea. 4 years post bariatric surgery. COMPARISON: November 03, 2015 CT TECHNIQUE: Multidetector CT images were obtained from the lung bases to the ischial tuberosities with 102 mL Omnipaque 300 IV and oral contrast. Multiplanar reformation. REPORT: VISUALIZED INFERIOR THORAX: Unremarkable visualized inferior thorax. LIVER / GALLBLADDER / PANCREAS / SPLEEN: Post cholecystectomy. Negative for biliary dilatation. Unremarkable liver, pancreas, spleen. ALIMENTARY TRACT: Postsurgical change of Momo-en-Y gastric bypass. Unremarkable CT appearance of the unopacified excluded segment of the stomach. No CT abnormality of the small bowel loops. The appendix is not visualized. Negative for RIGHT lower quadrant inflammatory change. Air-fluid levels throughout the colon. Negative for colonic wall thickening or abnormal dilatation. Negative for ascites, free air, hernias. MESENTERIC: Unremarkable. ADRENAL / GENITOURINARY: Unremarkable adrenal glands and kidneys with symmetric nephrograms and pyelograms. No abnormality along the course of the nondilated ureters. Largely decompressed urinary bladder limiting assessment without gross abnormality. Leftward deviated anteverted uterus with IUD in place. Unremarkable adnexal regions. RETROPERITONEAL: Negative for lymphadenopathy. VASCULAR: Normal diameter abdominal aorta and iliac arteries. Physiologic distention of the IVC. BONES: Negative for suspicious osseous lesions. Thoracic and lumbar sacral spine degenerative spondylosis. Multilevel Schmorl node endplate herniations. Spine findings are similar to the 2016 exam. SOFT TISSUE: Unremarkable. IMPRESSION: #. Postsurgical change of Momo-en-Y gastric bypass without visualized complication. #. Air-fluid levels throughout the colon. Negative for colonic wall thickening or abnormal dilatation. Consider gastroenteritis.
[2017-12-02] MEDS ORDERED: Acetaminophen TAB* 325 MG PO ONE (07:31)
--- NOTE | 2017-12-02 07:42 | ED ---
Progress - Progress Note Progress Note: Receiving sign-out from Dr. Velez. CT A/P results: Postsurgical change of Momo- en-Y gastric bypass without visualized complication. Air fluid levels throughout the colon. Negative for colonic wall thickening or abnormal dilation. Consider gastroenteritis. The ED Provider has reviewed this report. Final diagnosis are diarrhea and post- operative abdominal pain. Pt will be discharged home. Pt with chronic diarrhea since August. S/P G bypass. Stool studies obtained. Rx for lomotil, lactobacillus. F/U PMD, Surg. - EKG/XRAY/CT CT: Abd/Pelvis. Re-Evaluation - Re-Evaluation First Eval Re-Evaluation Time: 07:34 Change: Unchanged Comment: Discussed CT results with patient and plan for discharge. Course/Dx - Diagnoses Provider Diagnoses: Diarrhea, Postoperative generalized abdominal pain Discharge - Sign-Out/Discharge Documenting (check all that apply): Patient Departure, Receiving Sign-Out Receiving patient FROM: Praful Velez - Discharge Plan Condition: Stable Disposition: HOME Prescriptions: Diphenoxylat/Atrop 2.5-0.025M* [Lomotil TAB*] 1 tab PO QID #30 tab MDD 4 Lactobacillus Acidophilus* 1 cap PO BID #30 cap Patient Education Materials: Chronic Diarrhea (ED) Forms: *Work Release Referrals: Jose F Cole MD [Medical Doctor] - Marcia Reyes NP [Primary Care Provider] - Additional Instructions: Call your GI doctor and surgeon first thing Monday morning to schedule follow- up. Drink plenty of fluids. Return with fever, increased pain, worse, new symptoms or other concerns. - Billing Disposition and Condition Condition: STABLE Disposition: Home - Attestation Statements Document Initiated by Nan: Yes Documenting Scribe: Diogenes Berumen Provider For Whom Nan is Documenting (Include Credential): Tony Riggs MD. Scribe Attestation: Diogenes Gee scribed for Tony Riggs MD. on 12/02/17 at 1009. Scribe Documentation Reviewed: Yes Provider Attestation: The documentation as recorded by the Diogenes herrera accurately reflects the service I personally performed and the decisions made by me, Tony Riggs MD.
[2017-12-02 08:17] VITALS: BP 129/73
[2017-12-05] MEDS ORDERED: Scopolamine PATCH Remove* 1 NOTE MISC PATCH OFF SCH (06:00)
== END 2017-12-02 08:17 | disposition home or self-care (01) ==
LOC: ED 05:06
DX: R19.7 Diarrhea, unspecified (principal); G89.18 Other acute postprocedural pain; R10.84 Generalized abdominal pain; F17.210 Nicotine dependence, cigarettes, uncomplicated; Z88.5 Allergy status to narcotic agent
CPT/HCPCS: 36415; 74177; 80053; 82438; 83605; 83630; 83690; 83735; 84100; 84302; 84702; 84999; 85025; 87045; 87046; 87077; 87177; 87209; 87328; 87329; 87493; 87899; 96361; 96374; 96375; 96376; 99283; A9270-GY; J2270; J2405; Q9967

== ENCOUNTER 2018-04-01 08:30 | Emergency (ER) | payer BC ==
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
[2018-04-01] MEDS ORDERED: Acetaminophen TAB* 325 MG PO ONE (09:17)
[2018-04-01 11:02] VITALS: BP 125/80
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
== END 2018-04-01 11:20 | disposition home or self-care (01) ==
LOC: UCEAST 08:30
DX: S09.90XA Unspecified injury of head, initial encounter (principal); S16.1XXA Strain of muscle, fascia and tendon at neck level, initial encounter; S43.101A Unspecified dislocation of right acromioclavicular joint, initial encounter; E04.1 Nontoxic single thyroid nodule; F17.210 Nicotine dependence, cigarettes, uncomplicated; Z91.040 Latex allergy status; Z88.5 Allergy status to narcotic agent; Z91.018 Allergy to other foods; V86.92XA Unspecified occupant of snowmobile injured in nontraffic accident, initial encounter; Y92.9 Unspecified place or not applicable
CPT/HCPCS: 70450; 71250; 72125; 81003; 84702; 87077; 87086; 87186; 99213; A9270-GY; G0463

== ENCOUNTER 2019-02-26 08:07 | Emergency (ER) | payer BC ==
[2019-02-26] MEDS ORDERED: Metoclopramide IV* 5 MG/ML 2 ML VIAL IV ONE (08:40)
[2019-02-26 08:53] LABS: ABS Basophils 0.1 10^3/ul (0-0.2); ABS Eosinophils 0.1 10^3/ul (0-0.6); ABS Lymphocytes 1.8 10^3/ul (1.0-4.8); ABS Monocytes 0.6 10^3/ul (0-0.8); ABS Neutrophils 4.1 10^3/ul (1.5-7.7); Eosinophil % 1.7 %; Hematocrit 42 % (35-47); Mean Corpuscular HGB Conc 33 g/dL (31-36); Mean Corpuscular Hemoglobin 28 pg (27-31); Mean Corpuscular Volume 84 fL (80-97); Mean Platelet Volume 8.8 fL (7.4-10.4); Platelet Count 226 10^3/uL (150-450); Red Blood Count 5.02 10^6 /uL (3.70-4.87); Red Cell Distribution Width 14 % (10-15); White Blood Count 6.7 10^3/uL (3.5-10.8)
[2019-02-26] MEDS ORDERED: Lactated Ringers 1000 ML Bag* 1,000 ML IV SCH (09:00)
[2019-02-26 09:12] LABS: ALT 12 U/L (7-52); AST 16 U/L (13-39); Albumin 3.9 g/dL (3.2-5.2); Albumin/Globulin Ratio 1.3 (1-3); Alkaline Phosphatase 65 U/L (34-104); Anion Gap 6 mmol/L (2-11); BUN/Creatinine Ratio 8.6 (8-20); Blood Urea Nitrogen 7 mg/dL (6-24); C Reactive Protein 2.13 mg/L (<8.01); CO2 Carbon Dioxide 28 mmol/L (22-32); Calcium 9.2 mg/dL (8.6-10.3); Chloride 104 mmol/L (101-111); EGFR African American 101.2 (>60); EGFR Non-African American 83.6 (>60); Glucose 85 mg/dL (70-100); Magnesium 1.7 mg/dL (1.9-2.7); Potassium 4.1 mmol/L (3.5-5.0); Sodium 138 mmol/L (135-145); Total Protein 6.9 g/dL (6.4-8.9)
[2019-02-26 09:16] LABS: HCG Pregnancy < 0.60 mIU/mL
[2019-02-26 09:24] LABS: Urine Appearance Clear; Urine Bilirubin Negative (Negative); Urine Blood Negative (Negative); Urine Color Straw; Urine Glucose Negative (Negative); Urine Ketones Negative (Negative); Urine Nitrite Negative (Negative); Urine Protein Negative (Negative); Urine Specific Gravity 1.002 (1.010-1.030); Urine Urobilinogen Negative (Negative)
[2019-02-26 09:29] LABS: Urine Bacteria 1+ (Absent); Urine Red Blood Cell Absent (Absent); Urine Squamous Epithelial Cell Present (Absent); Urine White Blood Cell Trace(0-5/hpf) (Absent)
--- NOTE | 2019-02-26 09:48 | ED ---
Abdominal Pain/Female - HPI Summary HPI Summary: Patient is a 28-year-old female with a history of UTIs and gastric bypass 4 years ago who presents to the ED with left-sided flank pain, nausea, vomiting since yesterday afternoon. She was seen at urgent care and was noted to have a UTI with glucose in her urine. Patient states she is not diabetic. Fingerstick was 53 at the time. She states she was able to continue to eat well yesterday, but has been unable to keep anything down since last night with 3+ episodes of vomiting. She continues to endorse left-sided flank pain, however this is mild. Has been taking zofran at home with some relief. Feels dehydrated. Complications 1 yr following gastric pypass included cholecystectomy but no associated vitamin deficiencies. Has not had complications since that time. Denies any abdominal pain currently. Denies any pain with urination, however does endorse frequency of urination. No gross hematuria. Denies any fevers, sweats, chills. Denies any chance or history of STDs. - History of Current Complaint Chief Complaint: EDAbdPain Stated Complaint: LOW BLOOD SUGAR, KIDNEY PAIN, VOMITING PER PT Time Seen by Provider: 02/26/19 08:20 Hx Obtained From: Patient Hx Last Menstrual Period: 03/27/18 ?: No Onset/Duration: Sudden Onset Timing: Constant Severity Initially: Moderate Severity Currently: Moderate Pain Intensity: 6 Pain Scale Used: 0-10 Numeric Location: Flank Radiates: No Character: Cramping Aggravating Factor(s): Nothing Alleviating Factor(s): Nothing Associated Signs and Symptoms: Positive: Negative - Risk Factors Ectopic Risk Factor: Negative Ovarian Torsion Risk Factor: Negative Allergies/Adverse Reactions: Allergies Allergy/AdvReac Type Severity Reaction Status Date / Time hydrocodone Allergy Swelling Verified 02/26/19 08:20 Of Face,Lips,& Throat latex Allergy Rash Verified 02/26/19 08:20 wheat Allergy Hives Verified 02/26/19 09:14 cyclobenzaprine AdvReac Altered Verified 02/26/19 08:20 Mental Status tizanidine AdvReac Altered Verified 02/26/19 08:20 Mental Status Home Medications: Home Medications Ascorbic Acid TAB* [Vitamin C TAB*] 500 mg PO DAILY 02/26/19 [History Confirmed 02/26/19] Cyanocobalamin TAB* [Vitamin B12 TAB*] 500 mcg PO DAILY 02/26/19 [History Confirmed 02/26/19] Duloxetine HCl [Drizalma Sprinkle] 30 mg PO DAILY 02/26/19 [History Confirmed ] Erenumab-Aooe [Aimovig Autoinjector] 140 mg SUBCUT MONTHLY 02/26/19 [History Confirmed 02/26/19] Mometasone 220 MCG MDI * [Asmanex 220 MCG MDI *] 1 puff INH DAILY 02/26/19 [ History Confirmed 02/26/19] Ondansetron ODT TAB* [Zofran 4 MG Odt TAB*] 4 mg PO TID PRN 02/26/19 [History Confirmed 02/26/19] Sertraline* [Zoloft*] 50 mg PO DAILY 02/26/19 [History Confirmed 02/26/19] Vitamin B Complex CAP* [B Complex CAP*] 1 cap PO DAILY 02/26/19 [History Confirmed 02/26/19] PMH/Surg Hx/FS Hx/Imm Hx Previously Healthy: Yes Endocrine/Hematology History: Denies: Hx Anticoagulant Therapy, Hx Diabetes, Hx Thyroid Disease, Hx Anemia Cardiovascular History: Reports: Other Cardiovascular Problems/Disorders - arrythmia May 2016 Denies: Hx Congestive Heart Failure, Hx Hypertension, Hx Pacemaker/ICD Respiratory History: Reports: Hx Asthma Denies: Hx Chronic Obstructive Pulmonary Disease (COPD) GI History: Reports: Hx Gastroesophageal Reflux Disease, Hx Ulcer, Other GI Disorders - [place] en [place] gastric bypass 2013 Denies: Hx Jaundice History: Reports: Hx Kidney Infection, Other Problems/Disorders - ovarian cysts Denies: Hx Renal Disease Sensory History: Reports: Hx Cataracts, Hx Contacts or Glasses - CONTACTS Denies: Hx Hearing Aid Opthamlomology History: Reports: Hx Cataracts, Hx Contacts or Glasses - CONTACTS Neurological History: Reports: Hx Headaches, Hx Migraine Denies: Hx Dementia, Hx Seizures Psychiatric History: Reports: Hx Anxiety, Hx Depression Denies: Hx Panic Disorder, Hx Substance Abuse - Surgical History Surgery Procedure, Year, and Place: TUBES in bilat ears AT AGE 15. WISDOM TEETH. Gastric by pass 11/12/13. colycystectomy 08/12 Hx Anesthesia Reactions: No - Immunization History Date of Tetanus Vaccine: 2006 Date of Influenza Vaccine: 2015 Hx Pertussis Vaccination: No Immunizations Up to Date: Yes Infectious Disease History: No Infectious Disease History: Denies: Hx Clostridium Difficile, Hx Hepatitis, Hx Human Immunodeficiency Virus (HIV), Hx of Known/Suspected MRSA, Hx Shingles, Hx Tuberculosis, Hx Known/ Suspected VRE, Hx Known/Suspected VRSA, History Other Infectious Disease, Traveled Outside the [place] in Last 30 Days - Family History Known Family History: Positive: Cardiac Disease - Cousin: of heart problems at 19 y/o, Hypertension, Diabetes, Other - CA, overweight/obesity - Social History Occupation: Employed Full-time Lives: Alone Alcohol Use: Occasionally Alcohol Amount: 4 BEERS X WEEK Hx Substance Use: No Substance Use Type: Reports: None Hx Tobacco Use: Yes Smoking Status (MU): Light Every Day Tobacco Smoker Type: Cigarettes Amount Used/How Often: 3 CIG/DAY Have You Smoked in the Last Year: Yes Review of Systems Negative: Fever, Chills, Fatigue, Skin Diaphoresis Negative: Palpitations, Chest Pain Negative: Shortness Of Breath, Cough Positive: Vomiting, Nausea. Negative: Diarrhea Genitourinary: Negative Positive: no symptoms reported, see HPI, flank pain - L side ONLY Negative: Arthralgia Skin: Negative All Other Systems Reviewed And Are Negative: Yes Physical Exam Triage Information Reviewed: Yes Vital Signs On Initial Exam: Initial Vitals Temp Pulse Resp BP Pulse Ox 97.7 F 94 16 133/91 100 02/26/19 08:16 02/26/19 08:16 02/26/19 08:16 02/26/19 08:16 02/26/19 08:16 Vital Signs Reviewed: Yes Appearance: Positive: Well-Appearing, Well-Nourished Skin: Positive: Warm, Skin Color Reflects Adequate Perfusion Head/Face: Positive: Normal Head/Face Inspection Eyes: Positive: EOMI, TAYO, Conjunctiva Clear Neck: Positive: Supple, Nontender, No Lymphadenopathy Respiratory/Lung Sounds: Positive: Clear to Auscultation, Breath Sounds Present Cardiovascular: Positive: RRR, Pulses are Symmetrical in both Upper and Lower Extremities Musculoskeletal: Positive: Normal, Strength/ROM Intact Neurological: Positive: Facial Symmetry Psychiatric: Positive: Normal, Affect/Mood Appropriate AVPU Assessment: Alert Procedures - Sedation Patient Received Moderate/Deep Sedation with Procedure: No Diagnostics - Vital Signs Vital Signs Temp Pulse Resp BP Pulse Ox 12/31/19 08:16 97.7 F 94 16 133/91 100 - Laboratory Lab Results: Lab Results 02/26/19 02/26/19 02/26/19 Range/Units 08:46 08:46 08:46 WBC 6.7 (3.5-10.8) 10^3/uL RBC 5.02 H (3.70-4.87) 10^6 /uL Hgb 14.0 (12.0-16.0) g/dL Hct 42 (35-47) % MCV 84 (80-97) fL MCH 28 (27-31) pg MCHC 33 (31-36) g/dL RDW 14 (10-15) % Plt Count 226 (150-450) 10^3/uL MPV 8.8 (7.4-10.4) fL Neut % (Auto) 60.9 % Lymph % (Auto) 27.0 % [place] % (Auto) 8.8 % Eos % (Auto) 1.7 % Baso % (Auto) 1.6 % Absolute Neuts (auto) 4.1 (1.5-7.7) 10^3/ul Absolute Lymphs (auto) 1.8 (1.0-4.8) 10^3/ul Absolute Monos (auto) 0.6 (0-0.8) 10^3/ul Absolute Eos (auto) 0.1 (0-0.6) 10^3/ul Absolute Basos (auto) 0.1 (0-0.2) 10^3/ul Absolute Nucleated RBC 0.0 10^3/ul Nucleated RBC % 0.0 Sodium 138 (135-145) mmol/L Potassium 4.1 (3.5-5.0) mmol/L Chloride 104 (101-111) mmol/L Carbon Dioxide 28 (22-32) mmol/L Anion Gap 6 (2-11) mmol/L BUN 7 (6-24) mg/dL Creatinine 0.81 (0.51-0.95) mg/dL Est GFR ( Amer) 101.2 (>60) Est GFR (Non-Af Amer) 83.6 (>60) BUN/Creatinine Ratio 8.6 (8-20) Glucose 85 (70-100) mg/dL Lactic Acid 0.9 (0.5-2.0) mmol/L Calcium 9.2 (8.6-10.3) mg/dL Magnesium 1.7 L (1.9-2.7) mg/dL Total Bilirubin 0.50 (0.2-1.0) mg/dL AST 16 (13-39) U/L ALT 12 (7-52) U/L Alkaline Phosphatase 65 (34-104) U/L C-Reactive Protein 2.13 (<8.01) mg/L Total Protein 6.9 (6.4-8.9) g/dL Albumin 3.9 (3.2-5.2) g/dL Globulin 3.0 (2-4) g/dL Albumin/Globulin Ratio 1.3 (1-3) Lipase 55 (11.0-82.0) U/L Beta HCG, Quant < 0.60 mIU/mL Urine Color Urine Appearance Urine pH (5-9) Ur Specific [place] (1.010-1.030) Urine Protein (Negative) Urine Ketones (Negative) Urine Blood (Negative) Urine Nitrate (Negative) Urine Bilirubin (Negative) Urine Urobilinogen (Negative) Ur Leukocyte Esterase (Negative) Urine WBC (Auto) (Absent) Urine RBC (Auto) (Absent) Ur Squamous Epith Cells (Absent) Urine Bacteria (Absent) Urine Glucose (Negative) 02/26/19 Range/Units 08:50 WBC (3.5-10.8) 10^3/uL RBC (3.70-4.87) 10^6 /uL Hgb (12.0-16.0) g/dL Hct (35-47) % MCV (80-97) fL MCH (27-31) pg MCHC (31-36) g/dL RDW (10-15) % Plt Count (150-450) 10^3/uL MPV (7.4-10.4) fL Neut % (Auto) % Lymph % (Auto) % [place] % (Auto) % Eos % (Auto) % Baso % (Auto) % Absolute Neuts (auto) (1.5-7.7) 10^3/ul Absolute Lymphs (auto) (1.0-4.8) 10^3/ul Absolute Monos (auto) (0-0.8) 10^3/ul Absolute Eos (auto) (0-0.6) 10^3/ul Absolute Basos (auto) (0-0.2) 10^3/ul Absolute Nucleated RBC 10^3/ul Nucleated RBC % Sodium (135-145) mmol/L Potassium (3.5-5.0) mmol/L Chloride (101-111) mmol/L Carbon Dioxide (22-32) mmol/L Anion Gap (2-11) mmol/L BUN (6-24) mg/dL Creatinine (0.51-0.95) mg/dL Est GFR ( Amer) (>60) Est GFR (Non-Af Amer) (>60) BUN/Creatinine Ratio (8-20) Glucose (70-100) mg/dL Lactic Acid (0.5-2.0) mmol/L Calcium (8.6-10.3) mg/dL Magnesium (1.9-2.7) mg/dL Total Bilirubin (0.2-1.0) mg/dL AST (13-39) U/L ALT (7-52) U/L Alkaline Phosphatase (34-104) U/L C-Reactive Protein (<8.01) mg/L Total Protein (6.4-8.9) g/dL Albumin (3.2-5.2) g/dL Globulin (2-4) g/dL Albumin/Globulin Ratio (1-3) Lipase (11.0-82.0) U/L Beta HCG, Quant mIU/mL Urine Color Straw Urine Appearance Clear Urine pH 8.0 (5-9) Ur Specific [place] 1.002 L (1.010-1.030) Urine Protein Negative (Negative) Urine Ketones Negative (Negative) Urine Blood Negative (Negative) Urine Nitrate Negative (Negative) Urine Bilirubin Negative (Negative) Urine Urobilinogen Negative (Negative) Ur Leukocyte Esterase 1+ A (Negative) Urine WBC (Auto) Trace(0-5/hpf) (Absent) Urine RBC (Auto) Absent (Absent) Ur Squamous Epith Cells Present A (Absent) Urine Bacteria 1+ A (Absent) Urine Glucose Negative (Negative) Result Diagrams: 02/26/19 08:46 02/26/19 08:46 Lab Statement: Any lab studies that have been ordered have been reviewed, and results considered in the medical decision making process. Abdominal Pain Fem Course/Dx - Course Course Of Treatment: During this course treatment, the patient is evaluated for nausea, vomiting, left sided flank pain. Denies any gross hematuria. Symptoms began yesterday. Have remained consistent. At urgent care, she was diagnosed with UTI and given Macrobid, she has not picked this medication up. She continues to endorse urinary frequency with some mild left-sided flank pain. Patient appears well on arrival, vital signs are stable and she is not tachycardic. Afebrile. She is given 1 L lactated Ringer's, reglan 10mg IV and labs were obtained. These are WNL. Urine obtained which was also WNL except for a 1+ bacteria. Pt feeling improved following fluids and reglan. Discussed with patient these findings. This patient has improved, labs are WNL and she is afebrile. I have a low suspicion for pyelonephritis, however this is on the differential. There is no microscopic hematuria and patient has never had a history of nephrolithiasis. Patient does have a history of ovarian cysts and this could be a radiation of pain, however she continues to deny any bilateral lower abdominal pain. Patient is s/p cholecystectomy and no pain on palpation to all 4 quadrants. Lungs CTA, RRR. Pt given pyridium to help with any bladder spasms. Deferred imaging at this time and pt agrees to this plan. She will return if she develops any fevers or worsening abdominal/flank pain. On DC, she denies nausea at this time and continues to drink water without emesis. - Diagnoses Differential Diagnosis: Positive: Ovarian Cyst, Renal Colic, Urinary Tract Infection Provider Diagnoses: Flank pain, Nausea & vomiting Discharge ED - Sign-Out/Discharge Documenting (check all that apply): Patient Departure - Discharge Plan Condition: Stable Disposition: HOME Prescriptions: Phenazopyridine TAB* [Pyridium 100 mg TAB*] 100 mg PO TID #12 tab Patient Education Materials: Flank Pain (ED) Referrals: Marcia Reyes, DIRECTOR OF FINANCIAL REPORTING [Primary Care Provider] - Additional Instructions: Pyridium 3 times daily as needed for any bladder spasms or feeling the urge to urinate Please return to the ED if you develop any worsening or changing symptoms or you develop a fever - Billing Disposition and Condition Condition: STABLE Disposition: Home
[2019-02-26 10:04] VITALS: BP 123/73
--- NOTE | 2019-02-28 05:46 | ED ---
Imaging and Labs Follow Up Follow Up Type: Labs/Cultures Labs/Culture Result: Urine culture preliminary shows 75-100,000 Escherichia coli. Urine sample appears contaminated. Patient Communication/Plan: Patient is a symptomatic for complaints with appearance of contaminated urine sample. Nothing further at this time. Provider Diagnoses: Flank pain, Nausea & vomiting
== END 2019-02-26 10:03 | disposition home or self-care (01) ==
LOC: ED 08:07
DX: R10.32 Left lower quadrant pain (principal); R11.2 Nausea with vomiting, unspecified; J45.909 Unspecified asthma, uncomplicated; K21.9 Gastro-esophageal reflux disease without esophagitis; F41.9 Anxiety disorder, unspecified; F32.9 Major depressive disorder, single episode, unspecified; F17.210 Nicotine dependence, cigarettes, uncomplicated; Z98.84 Bariatric surgery status; Z90.49 Acquired absence of other specified parts of digestive tract; Z79.899 Other long term (current) drug therapy; Z88.5 Allergy status to narcotic agent; Z88.8 Allergy status to other drugs, medicaments and biological substances; Z91.040 Latex allergy status
CPT/HCPCS: 36415; 80053; 81003; 81015; 83605; 83690; 83735; 84702; 85025; 86140; 87077; 87086; 87186; 96361; 96374; 99282; J2765

== ENCOUNTER 2022-02-20 09:34 | Inpatient (IN) ==
[2022-02-20] MEDS ORDERED: Lactated Ringers 1000 ml BAG 1,000 ML IV ONE ×3 (10:11→13:23)
[2022-02-20] MEDS ORDERED: Buffered Lidocaine 1% SYRIN 1 ml ONE (10:22)
[2022-02-20] MEDS ORDERED: Buffered Lidocaine 1% SYRIN 1 ml INTRADERM ONE ×2 (10:35→10:49)
[2022-02-20] MEDS ORDERED: Lactated Ringers 1000 ml BAG 1,000 ML IV SCH ×3 (11:00→14:00)
[2022-02-20] MEDS ORDERED: ceFOXitin 2 GM IVPREMIX 2 GM/50 ML BAG ONE (11:09)
[2022-02-20] MEDS ORDERED: Sodium Citrate/Citric Acid LIQ 15 ML UDC ONE (11:09)
[2022-02-20 11:26] LABS: ABS Basophils 0.1 10^3/ul (0-0.2); ABS Lymphocytes 1.7 10^3/ul (1.0-4.8); ABS Monocytes 0.8 10^3/ul (0-0.8); ABS Neutrophils 9.1 10^3/ul (1.5-7.7); Eosinophil % 0.3 %; Hematocrit 39 % (35-47); Hemoglobin 13.5 g/dL (12.0-16.0); Lymphocyte % 14.3 %; Mean Corpuscular HGB Conc 35 g/dL (31-36); Mean Corpuscular Hemoglobin 31 pg (27-31); Mean Corpuscular Volume 89 fL (80-97); Mean Platelet Volume 8.4 fL (7.4-10.4); Nucleated Red Blood Cells % 0.1; Platelet Count 205 10^3/uL (150-450); Red Cell Distribution Width 13 % (10-15); White Blood Count 11.8 10^3/uL (3.5-10.8)
[2022-02-20] MEDS ORDERED: HYDROmorphone 1 MG/1 ML SYRINGE IV PRN (13:20)
[2022-02-20] MEDS ORDERED: Naloxone 0.4 mg VIAL 0.4 mg/ml 1 ml VIAL IV PRN (13:20)
[2022-02-20] MEDS ORDERED: Ondansetron 4 mg VIAL 2 MG/ML 2 ml VIAL IV PRN ×2 (13:20→19:46)
[2022-02-20] MEDS ORDERED: Sodium Citrate/Citric Acid LIQ 15 ML UDC PO PRN (13:23)
[2022-02-20 13:38] LABS: Urine Appearance Clear; Urine Color Yellow; Urine Glucose Negative (Negative)
[2022-02-20 13:39] LABS: Urine Bilirubin Negative (Negative); Urine Blood Trace (Intact) (Negative); Urine Ketones 4+ (>=160mg/dL) (Negative); Urine Nitrite Negative (Negative); Urine Protein Negative (Negative); Urine Specific Gravity 1.025 (1.005-1.030); Urine Urobilinogen 0.2 (Negative) (Negative)
[2022-02-20] MEDS ORDERED: Witch Hazel PAD JAR TOPICAL PRN (13:41)
[2022-02-20] MEDS ORDERED: Dibucaine 1% OINT 28.35 GM TUBE PR PRN (13:41)
[2022-02-20] MEDS ORDERED: Glycerin ADULT 2.4 gm SUPP PR PRN (13:41)
[2022-02-20] MEDS ORDERED: Oxytocin in LR 20,000 MILLI.UNIT/1,000 ML BAG IV SCH (13:45)
[2022-02-20 13:55] LABS: Urine Bacteria Absent (Absent); Urine Red Blood Cell Trace(0-2/hpf) (Absent); Urine Squamous Epithelial Cell Present (Absent); Urine Transitional Epithelial Present (Absent); Urine White Blood Cell 1+(6-10/hpf) (Absent)
[2022-02-20 13:58] LABS: Urine Benzodiazepine Screen None Detected (None Detect); Urine Cannabinoids Screen None Detected (None Detect); Urine Opiates Screen None Detected (None Detect)
[2022-02-20] MEDS ORDERED: Metoclopramide 5 MG/ML VIAL (10 mg) IV PRN (19:46)
[2022-02-20] MEDS ORDERED: Naloxone 0.4 mg VIAL 0.4 mg/ml 1 ml VIAL IV PUSH PRN (19:46)
[2022-02-20] MEDS ORDERED: Acetaminophen IV 1 GM/100ML 1,000 MG/100 ML BAG IV PRN (19:46)
[2022-02-21 06:27] LABS: ABS Eosinophils 0.1 10^3/ul (0-0.6); ABS Lymphocytes 0.8 10^3/ul (1.0-4.8); ABS Monocytes 0.8 10^3/ul (0-0.8); ABS Neutrophils 9.9 10^3/ul (1.5-7.7); Eosinophil % 0.9 %; Hematocrit 37 % (35-47); Hemoglobin 12.9 g/dL (12.0-16.0); Lymphocyte % 7.1 %; Mean Corpuscular HGB Conc 35 g/dL (31-36); Mean Corpuscular Hemoglobin 31 pg (27-31); Mean Corpuscular Volume 90 fL (80-97); Nucleated Red Blood Cells % 0.1; Platelet Count 193 10^3/uL (150-450); Red Blood Count 4.16 10^6 /uL (3.70-4.87); Red Cell Distribution Width 13 % (10-15); White Blood Count 11.6 10^3/uL (3.5-10.8)
[2022-02-23 07:38] VITALS: BP 116/88
== END 2022-02-23 14:28 | disposition home or self-care (01) | DRG 540 ==
LOC: MCHOBOUT 09:34 → MCHOB 10:54
PROVIDERS: ADMIT Obstetrics & Gynecology; ATTEND Obstetrics & Gynecology